=== PATIENT | male | born 2000 | race Caucasian/White ===

== ENCOUNTER 2020-06-04 20:50 | Emergency (ER) | payer SELFPAY ==
[2020-06-04] MEDS ORDERED: ACETAMINOPHEN 325 MG TABLET PO ONE (21:31)
[2020-06-04] MEDS ORDERED: CEFTRIAXONE 1 GM/D5W RTU 1 GM/50 ML RTUPB IV ONE (21:33)
--- NOTE | 2020-06-04 21:40 | ER Document Report ---
ED Medical Screen (RME) - General Chief Complaint: Chest Pain Stated Complaint: CHEST PAIN, COUGH Time Seen by Provider: 06/04/20 21:29 Mode of Arrival: Ambulatory Information source: Patient Notes: 19-year-old male presented to ED for complaint of shortness of breath and chest pain with fevers intermittently runny nose and congestion. When I did his vital signs his temperature was 103.1 with a pulse of 148. He had a EKG earlier with a pulse of 120. I did speak with the charge nurse and placed the patient in a isolation room. I did put in a sepsis work-up and a Covid test. Patient will be started on Tylenol antibiotics and the sepsis work-up will be started. I have greeted and performed a rapid initial assessment of this patient. A comprehensive ED assessment and evaluation of the patient, analysis of test results and completion of medical decision making process will be conducted by an additional ED providers.
[2020-06-04] MEDS: NORMAL SALINE 1000 ML 1,000 ML IV PRN ×2 (22:08→22:48)
[2020-06-04 22:29] LABS: HEMATOCRIT 38.8 % (37.9-51.0); HEMOGLOBIN 13.3 g/dL (13.5-17.0); MEAN CORPUSCULAR HEMOGLOBIN 27.8 pg (27.0-33.4); MEAN CORPUSCULAR HGB CONC 34.2 g/dL (32.0-36.0); MEAN CORPUSCULAR VOLUME 81 fl (80-97); PLATELET COUNT 215 10^3/uL (150-450); RED BLOOD COUNT 4.77 10^6/uL (4.35-5.55); RED CELL DISTRIBUTION WIDTH 14.5 % (11.5-14.0); VENOUS BLOOD BASE EXCESS -1.2 mmol/L; VENOUS BLOOD HCO3 22.6 mmol/L (20-32); VENOUS BLOOD PCO2 36.2 mmHg (35-63); VENOUS BLOOD PH 7.41 (7.30-7.42); WHITE BLOOD COUNT 5.8 10^3/uL (4.0-10.5)
[2020-06-04 22:40] LABS: PROTHROMBIN TIME 14.4 SEC (11.4-15.4)
[2020-06-04 22:45] LABS: ALBUMIN 4.6 g/dL (3.5-5.0); ALKALINE PHOSPHATASE 98 U/L (38-126); ANION GAP 13 (5-19); ASPARTATE AMINO TRANSFERASE 31 U/L (17-59); BILIRUBIN,DIRECT 0.2 mg/dL (0.0-0.4); BLOOD UREA NITROGEN 17 mg/dL (7-20); CALCIUM 9.3 mg/dL (8.4-10.2); CARBON DIOXIDE 25 mmol/L (22-30); CHLORIDE 96 mmol/L (98-107); GLUCOSE 101 mg/dL (75-110); POTASSIUM 4.3 mmol/L (3.6-5.0); TOTAL PROTEIN 8.2 g/dL (6.3-8.2)
--- NOTE | 2020-06-04 22:46 | RADIOLOGY REPORT (SQ) ---
EXAM DESCRIPTION: XR CHEST 1 VIEW COMPLETED DATE/TME: 06/04/2020 22:09 CLINICAL HISTORY: 19 years, Male, Cough congestion chest pain temp of 103.1 PROCEDURE: XR CHEST 1 VIEW COMPARISON: None FINDINGS: Portable view of the chest was obtained at 9:52 PM. The heart size is normal and the lungs are clear. There is no definite pleural effusion or pneumothorax. IMPRESSION: Negative study as above. copyright 2010 [employer]- All Rights Reserved
[2020-06-04 22:59] LABS: ABSOLUTE MONOCYTES # (MANUAL) 0.9 10^3/uL (0.1-1.4); BASOPHILS % (MANUAL) 0 % (0-2); EOSINOPHILS % (MANUAL) 0 % (0-6); LYMPHOCYTES % (MANUAL) 15 % (13-45); MONOCYTES % (MANUAL) 16 % (3-13); SEGMENTED NEUTROPHILS % (MAN) 67 % (42-78); TOTAL CELLS COUNTED 100
[2020-06-04 23:00] LABS: ANISOCYTOSIS SLIGHT; PLATELET COMMENT ADEQUATE
[2020-06-04 23:01] LABS: POLYCHROMASIA SLIGHT
[2020-06-04 23:03] LABS: POIKILOCYTOSIS SLIGHT
--- NOTE | 2020-06-04 23:42 | ER Document Report ---
ED General - General Chief Complaint: Fever Stated Complaint: CHEST PAIN, COUGH Time Seen by Provider: 06/04/20 21:29 Mode of Arrival: Ambulatory - HPI Context: This is a 19-year-old male presenting to the emergency department complaining of dyspnea, pleuritic chest pain and intermittent fevers along with rhinorrhea and upper respiratory congestion x3 weeks. Patient initial vital signs in triage were significant for a temp of 103.1 and a pulse of 148. Patient denies prior history of COVID-19, known exposure to persons positive for or under investigation for COVID-19. Patient states symptoms are worse with exertion. Patient also complains of left-sided chest pain along his left costal margin w hich is worse with cough deep breath and movement. Patient denies alleviating factors. Patient denies receiving flu vaccine this season. Patient is also complaining of a runny nose and nasal congestion. Patient denies cigarette smoking and marijuana use. Patient does have a history of asthma but denies wheezing. Patient denies loss of sense of taste or loss of sense of smell. Associated symptoms: Other - See HPI Exacerbated by: Other - See HPI Relieved by: Other - See HPI - Related Data Allergies/Adverse Reactions: Penicillins Allergy (Verified 06/04/20 22:03) Past Medical History - General Information source: Patient - Social History Smoking Status: Never Smoker Frequency of alcohol use: None Drug Abuse: None Family History: Reviewed & Not Pertinent Patient has suicidal ideation: No Patient has homicidal ideation: No Pulmonary Medical History: Reports: Hx Asthma - as a child, Hx Bronchitis, Hx Pneumonia Review of Systems - Review of Systems Constitutional: See HPI EENT: No symptoms reported Cardiovascular: No symptoms reported Respiratory: Cough, Hurts to breathe, Short of breath Gastrointestinal: No symptoms reported Genitourinary: No symptoms reported Male Genitourinary: No symptoms reported Musculoskeletal: No symptoms reported Skin: No symptoms reported Hematologic/Lymphatic: No symptoms reported Neurological/Psychological: No symptoms reported -: Yes All other systems reviewed and negative Physical Exam - Vital signs Vitals: Resp Pulse Ox 27 H 99 06/04/20 21:36 06/04/20 21:36 - Notes Notes: CONSTITUTIONAL [Vital signs reviewed, Patient appears comfortable, Alert and oriented X 3, Normal stature.] HEAD [Atraumatic, Normocephalic.] EYES [Eyes are normal to inspection, No discharge from eyes, Extraocular muscles in tact, Sclera are normal, Conjunctiva are normal.] ENT [External ears normal to inspection, Nose examination normal, Mouth normal to inspection.] NECK [Normal ROM, No jugular venous distention, No meningeal signs, ] RESPIRATORY CHEST [Chest is nontender, Breath sounds normal, No respiratory distress. No wheezing or rhonchi noted] CARDIOVASCULAR [RRR, No murmurs, Normal S1 S2, No rub, No gallop.] ABDOMEN [Abdomen is nontender, No pulsatile masses, No other masses, Bowel sounds normal, No distension, No peritoneal signs, No hernias.] BACK [There is no CVA Tenderness, There is no tenderness to palpation, Normal inspection.] UPPER EXTREMITY [Inspection normal, No cyanosis, No clubbing, No edema, LOWER EXTREMITY [Inspection normal, No cyanosis, No clubbing, No edema, No calf tenderness, NEURO [No focal motor deficits, No focal sensory deficits, Speech normal.] SKIN [Skin is warm, Skin is dry, Skin is normal color.] PSYCHIATRIC [Normal affect. ] Course - Re-evaluation Re-evalutation: 06/05/20 01:42 Patient states he "feels fine" at this time. Results of ED MSE discussed with patient. Patient was given COVID-19 precautions and will be given a work note. The patient's flu swabs were negative however he could possibly have a nontypeable type of influenza. There was no evidence of pneumonia on his chest x-ray. The patient is not having any wheezing. I think that his symptoms could be due to a viral respiratory infection, COVID-19. I do not think this is any type of asthma exacerbation that needs prednisone therapy. All questions were answered prior to discharge. Emergency signs and symptoms, reasons to return to the emergency department discussed with patient. - Vital Signs Vital signs: Temp Pulse Resp BP Pulse Ox 99.6 F 18 126/72 H 97 06/04/20 22:47 06/05/20 01:01 06/05/20 01:01 06/05/20 01:01 - Laboratory Result Diagrams: 06/04/20 21:46 06/04/20 21:46 Laboratory results interpreted by me: 06/04/20 06/04/20 06/05/20 21:46 21:46 00:08 Hgb 13.3 L RDW 14.5 H Monocytes % (Manual) 16 H Sodium 134.4 L Chloride 96 L Urine Ketones TRACE H Urine Urobilinogen 4.0 H - Diagnostic Test Radiology reviewed: Reports reviewed - EKG Interpretation by Me Additional EKG results interpreted by me: 06/05/20 01:41 EKG obtained on 06/04/2020 at 2102 hrs. was interpreted by this MD. Findings: Sinus tachycardia, rate 120, normal axis, AK interval appears to be within normal limits, P waves proceed QRS complexes, QRS complex appears narrow, QTC is 402, there are no obvious patterns of ST segment elevation, depression or reciprocal changes seen to suggest acute myocardial ischemia or infarction. Impression: Sinus tachycardia with nonspecific ST segments. Discharge - Discharge Clinical Impression: Person under investigation for COVID-19 Dyspnea Qualifiers: Dyspnea type: unspecified Qualified Code(s): R06.00 - Dyspnea, unspecified Fever Qualifiers: Fever type: unspecified Qualified Code(s): R50.9 - Fever, unspecified Condition: Stable Disposition: HOME, SELF-CARE Instructions: COVID-19 Guidance for Persons Under Investigation, Fever ([facility]) Additional Instructions: Return to the Emergency Department without delay if any worse. HOME CARE INSTRUCTIONS & INFORMATION: Thank you for choosing us for your medical needs. We hope you're satisfied with the care you received. After you leave, you must properly care for your problem and, at the same time, observe its progress. Any condition can change. Some illnesses can change rapidly over hours or days. If your condition worsens, return to the Emergency Department or see your physician promptly. ABOUT YOUR X-RAYS AND EKG'S: If you had an EKG or X-rays taken, they have been read by the Emergency Physician. The X-rays and EKG's will also be read by a Radiologist or [employer] Tender within 24 hours. If discrepancies are noted, you will be notified by telephone. Please be certain the ED has a correct telephone number & address where you can be reached. Also, realize that some fractures or abnormalities do not show up on initial X-rays. If your symptoms continue, see your physician. ABOUT YOUR LABORATORY TEST: If you had laboratory tests, the results have been reviewed by the Emergency Physician. Some test results (for example cultures) may not be available for several days. You will be contacted if any test result shows you need additional treatment. Please be certain the ED has a correct telephone number and address where you can be reached. ABOUT YOUR MEDICATIONS: You will receive instructions on how to take your medi cine on the prescription label you receive. Additional information may be provided by the Pharmacy. If you have questions afterwards, call the ED for clarification or further instructions. Some prescribed medications may cause drowsiness. Do not perform tasks such as driving a car or operating machinery without consulting your Pharmacist. If you feel you need a refill of pain medication, your condition will need re-evaluation. Please do not call for a refill of any medication. ABOUT YOUR SIGNATURE: Signature of this document acknowledges to followin. Understanding that you received emergency treatment and that you may be released before al medical problems are known or treated. Please be certain the ED has a correct phone number & address where you can be reached. 2. Acknowledgement that you will arrange for follow-up care as recommended. 3. Authorization for the Emergency Physician to provide information to your follow-up Physician in order to maximize your care. AT ANY TIME, IF YOUR SYMPTOMS CHANGE SIGNIFICANTLY OR WORSEN OR YOU DEVELOP NEW SYMPTOMS, RETURN TO THE EMERGENCY DEPARTMENT IMMEDIATELY FOR RE-EVALUATION. OUR GOAL IS TO PROVIDE EXCELLENT MEDICAL CARE! WE HOPE THAT WE HAVE MET YOUR EXPECTATIONS DURING YOUR EMERGENCY DEPARTMENT VISIT AND THAT YOU FEEL YOU HAVE RECEIVED EXCELLENT CARE! Prescriptions: Ibuprofen [Motrin 600 Mg Tablet] 600 mg PO QID #20 tablet Forms: Return to Work Referrals: LEXIE AMBROSE MD [HONORARY] - Follow up as needed
[2020-06-05 00:30] LABS: APPEARANCE,URINE CLEAR; BILIRUBIN,URINE NEGATIVE (NEGATIVE); COLOR,URINE YELLOW; GLUCOSE, URINE NEGATIVE (NEGATIVE); KETONES,URINE TRACE mg/dL (NEGATIVE); LEUKOCYTE ESTERASE,URINE NEGATIVE (NEGATIVE); NITRITE,URINE NEGATIVE (NEGATIVE); PROTEIN,URINE NEGATIVE (NEGATIVE); URINE SPECIFIC GRAVITY 1.013
[2020-06-05 00:37] LABS: A TYPE INFLUENZA AG NEGATIVE (NEGATIVE); B INFLUENZA AG NEGATIVE (NEGATIVE)
[2020-06-05] MEDS ORDERED: IBUPROFEN 600 MG TABLET PO ONE (01:46)
[2020-06-05 02:33] VITALS: BP 125/80
--- NOTE | 2020-06-05 09:51 | EKG REPORT ---
SEVERITY:- OTHERWISE NORMAL ECG - SINUS TACHYCARDIA : Confirmed by: Gabby Marino 05-Jun-2020 09:50:43
== END 2020-06-05 02:36 | disposition home or self-care (01) ==
LOC: ER 20:50
DX: R50.9 Fever, unspecified (principal); R07.81 Pleurodynia; R07.1 Chest pain on breathing; R06.02 Shortness of breath; J34.89 Other specified disorders of nose and nasal sinuses; R09.89 Other specified symptoms and signs involving the circulatory and respiratory systems; R09.81 Nasal congestion; R05 Cough; R00.0 Tachycardia, unspecified; Z87.01 Personal history of pneumonia (recurrent); Z88.0 Allergy status to penicillin; Z20.828 Contact with and (suspected) exposure to other viral communicable diseases
CPT/HCPCS: 93005; 99285; 96361; 96365; 36415; 87040; 87086; 83605; 85025; 85610; 87635; 80053; 81001; 82803; 87804; 71045; 93010; J7030; J0696; C9803

== ENCOUNTER 2020-06-18 18:36 | Emergency (ER) | payer SELFPAY ==
[2020-06-18] MEDS ORDERED: KETOROLAC TROMETHAMINE 60 MG/2 ML SDV IM ONE (18:51)
--- NOTE | 2020-06-18 18:55 | ER Document Report ---
ED Medical Screen (RME) - General Chief Complaint: Fever Stated Complaint: COUGH,CONGESTION,LEFT RIB PAIN Time Seen by Provider: 06/18/20 18:48 Mode of Arrival: Ambulatory Information source: Patient Notes: 19-year-old male presented to ED for complaint of cough cold congestion left rib pain felt like something popped and went to crack today. He does have a temperature of 103 with a pulse of 136. He states he was seen here for similar feeling about 2 weeks ago and they did not find anything they did blood and urine and all kinds of stuff and did not find anything. He states he has not really gotten any better since that. He is alert oriented respirations regular and unlabored speaking in full sentences. I have spoken to the charge nurse who told me to put him in room 36. I have started a septic work-up on him. I have greeted and performed a rapid initial assessment of this patient. A comprehensive ED assessment and evaluation of the patient, analysis of test results and completion of medical decision making process will be conducted by an additional ED providers. - Related Data Allergies/Adverse Reactions: Penicillins Allergy (Verified 06/18/20 18:47) Home Medications: ibuprofen Past Medical History - Social History Chew tobacco use (# tins/day): No Frequency of alcohol use: Rare Drug Abuse: None Pulmonary Medical History: Reports: Hx Asthma - as a child, Hx Bronchitis, Hx Pneumonia Physical Exam - Vital signs Vitals: Temp Pulse Resp BP Pulse Ox 103.0 F H 136 H 20 134/77 H 100 06/18/20 18:45 06/18/20 18:45 06/18/20 18:45 06/18/20 18:45 06/18/20 18:45 Course - Vital Signs Vital signs: Temp Pulse Resp BP Pulse Ox 103.0 F H 136 H 20 134/77 H 100 06/18/20 18:48 06/18/20 18:45 06/18/20 18:45 06/18/20 18:45 06/18/20 18:45
[2020-06-18] MEDS ORDERED: KETOROLAC TROMETHAMINE INJ/PF 30 MG/1 ML SDV IV ONE (18:57)
[2020-06-18] MEDS: NORMAL SALINE 1000 ML 1,000 ML IV PRN ×2 (19:30→20:24)
--- NOTE | 2020-06-18 19:33 | RADIOLOGY REPORT (SQ) ---
EXAM DESCRIPTION: RIBS LEFT W/PA CHEST IMAGES COMPLETED DATE/TIME: 06/18/2020 7:21 pm REASON FOR STUDY: left rib pain COMPARISON: Chest radiograph 06/04/2020 TECHNIQUE: Frontal view of the chest and additional views of the left ribs acquired. NUMBER OF VIEWS: Three view. LIMITATIONS: None. FINDINGS: FRONTAL CXR: No pneumothorax. There is concern for peritracheal hilar and AP window adeno selma. RIBS: Nondisplaced fractures of the 7th and 8th lateral left ribs. OTHER: No other significant finding. IMPRESSION: Nondisplaced 7th and 8th lateral rib fractures. Concern for adenopathy in the hilar mediastinum regions. COMMENT: Consider chest CT. SITE OF TRAUMA/COMPLAINT MARKED/STAMP COMPLETED: Yes TECHNICAL DOCUMENTATION: JOB ID: [id number] 2010 [employer]- All Rights Reserved Reading location - IP/workstation name: [email or web address]
[2020-06-18 20:22] LABS: HEMATOCRIT 36.3 % (37.9-51.0); HEMOGLOBIN 12.1 g/dL (13.5-17.0); MEAN CORPUSCULAR HEMOGLOBIN 26.5 pg (27.0-33.4); MEAN CORPUSCULAR HGB CONC 33.3 g/dL (32.0-36.0); MEAN CORPUSCULAR VOLUME 79 fl (80-97); PLATELET COUNT 200 10^3/uL (150-450); RED BLOOD COUNT 4.57 10^6/uL (4.35-5.55); WHITE BLOOD COUNT 3.9 10^3/uL (4.0-10.5)
[2020-06-18 20:23] LABS: VENOUS BLOOD BASE EXCESS 1.6 mmol/L; VENOUS BLOOD HCO3 25.7 mmol/L (20-32); VENOUS BLOOD PCO2 38.9 mmHg (35-63); VENOUS BLOOD PH 7.44 (7.30-7.42)
[2020-06-18 20:24] LABS: INTERNATIONAL RATION (INR) 1.13; PROTHROMBIN TIME 14.7 SEC (11.4-15.4)
[2020-06-18 20:35] LABS: ALBUMIN 4.1 g/dL (3.5-5.0); ALKALINE PHOSPHATASE 78 U/L (38-126); ANION GAP 6 (5-19); ASPARTATE AMINO TRANSFERASE 45 U/L (17-59); BILIRUBIN,DIRECT 0.2 mg/dL (0.0-0.4); BILIRUBIN,TOTAL 0.8 mg/dL (0.2-1.3); BLOOD UREA NITROGEN 11 mg/dL (7-20); CALCIUM 9.2 mg/dL (8.4-10.2); CARBON DIOXIDE 29 mmol/L (22-30); CHLORIDE 98 mmol/L (98-107); GLUCOSE 102 mg/dL (75-110); POTASSIUM 4.8 mmol/L (3.6-5.0); TOTAL PROTEIN 7.4 g/dL (6.3-8.2)
[2020-06-18 20:37] LABS: A TYPE INFLUENZA AG NEGATIVE (NEGATIVE); B INFLUENZA AG NEGATIVE (NEGATIVE)
[2020-06-18 20:48] LABS: ABSOLUTE LYMPHOCYTES# (MANUAL) 0.6 10^3/uL (0.5-4.7); ABSOLUTE MONOCYTES # (MANUAL) 0.6 10^3/uL (0.1-1.4); BAND NEUTROPHILS % (MANUAL) 3 % (3-5); BASOPHILS % (MANUAL) 0 % (0-2); EOSINOPHILS % (MANUAL) 1 % (0-6); LYMPHOCYTES % (MANUAL) 13 % (13-45); METAMYELOCYTES % (MANUAL) 2 % (0-1); MONOCYTES % (MANUAL) 15 % (3-13); SEGMENTED NEUTROPHILS % (MAN) 64 % (42-78); TOTAL CELLS COUNTED 100
[2020-06-18 20:49] LABS: ANISOCYTOSIS SLIGHT; PLATELET COMMENT ADEQUATE; POLYCHROMASIA SLIGHT
[2020-06-18] MEDS ORDERED: CEFTRIAXONE 1 GM/D5W RTU 1 GM/50 ML RTUPB IV ONE (21:58)
[2020-06-18] MEDS ORDERED: AZITHROMYCIN INJ 500 MG VIAL IV ONE (21:59)
--- NOTE | 2020-06-18 22:02 | ER Document Report ---
ED General - General Chief Complaint: Fever Stated Complaint: COUGH,CONGESTION,LEFT RIB PAIN Time Seen by Provider: 06/18/20 18:48 Primary Care Provider: LEXIE AMBROSE MD [HONORARY] - Follow up as needed Mode of Arrival: Ambulatory - HPI Context: This is a 19-year-old male presenting to the emergency department complaining of shortness of breath, pleuritic chest pain and fever as well as cough. Patient states he has had the symptoms for approximately 1 month. Patient states that he came to this ED approximately 2 weeks ago to get evaluated for the same symptoms. No etiology of his symptoms were found. Patient had a COVID-19 test done that was resulted as negative. Patient states in the interim he is still had issues with cough, fever, pleuritic chest pain. Patient states he is had several episodes of extreme coughing fits, and twice he is felt a crack or a pop on his left side associated with the coughing. Patient denies any type of chest trauma, prior rib fracture, accidental fall. Patient states that cough and deep breath as well as exertion exacerbate his symptoms. Patient denies any alleviating symptoms. Patient states when he coughed again today and felt another pop he spoke to his mother who is a nurse, she instructed him to come to the emergency department for evaluation. Patient has not had a flu vaccine this season. Patient denies to smoking. Patient states he had a history of asthma and bronchitis as a child which he states he outgrew. Patient denies headache, visual changes, loss of sense of smell or loss of sense of taste, h istory of COVID-19 infection, known exposure to persons positive for COVID-19 or persons under investigation for COVID-19. Patient denies any alleviating factors at this point. Patient states he does have pain in his left rib cage that he describes as sharp pain as a 4 out of 5. Pain is exacerbated with deep breath and with cough and there are no alleviating factors. Patient has tried [id number] medications without relief of symptoms. Associated symptoms: Other - See HPI Exacerbated by: Other - See HPI Similar symptoms previously: Yes Recently seen / treated by doctor: Yes - Related Data Allergies/Adverse Reactions: Penicillins Allergy (Verified 06/18/20 18:47) Home Medications: ibuprofen Past Medical History - General Information source: Patient - Social History Smoking Status: Never Smoker Chew tobacco use (# tins/day): No Frequency of alcohol use: Rare Drug Abuse: None Family History: Reviewed & Not Pertinent Patient has homicidal ideation: No Pulmonary Medical History: Reports: Hx Asthma - as a child, Hx Bronchitis, Hx Pneumonia Review of Systems - Review of Systems Notes: Review of systems as below unless otherwise stated in HPI. CONSTITUTIONAL [+] fever, [No] chills. EYES [No] eye pain. ENT [No] URI symptoms, [No] sore throat, [No] ear pain. CARDIOVASCULAR [+] chest wall pain, [No] palpitations, [No] edema. RESPIRATORY [+] Cough, [No] SOB, [No] wheezing. GASTROINTESTINAL [No] abdominal pain, [No] nausea, [No] Diarrhea, [No] Vomiting, [No] constipation, [No] melena, [No] rectal bleeding. GENITOURINARY [No] dysuria, [No] urinary frequency, [No] hematuria, [No] urinary urgency MUSCULOSKELETAL [No] Back pain. SKIN [No] Rash. NEUROLOGIC [No] Headache, [No] recent seizures, [No] paralysis,[No] parathesias. ENDOCRINE [No] polyuria. HEMO/LYMPATIC [No] easy brusing PSYCHIATRIC [No] depression. Physical Exam - Vital signs Vitals: Temp Pulse Resp BP Pulse Ox 103.0 F H 136 H 20 134/77 H 100 06/18/20 18:45 06/18/20 18:45 06/18/20 18:45 06/18/20 18:45 06/18/20 18:45 - Notes Notes: CONSTITUTIONAL [Vital signs reviewed, Patient appears mildly uncomfortable, Alert and oriented X 3, Normal stature.] HEAD [Atraumatic, Normocephalic.] EYES [Eyes are normal to inspection, No discharge from eyes, Extraocular muscles intact, Sclera are normal, Conjunctiva are normal.] ENT [External ears normal to inspection, Nose examination normal, Mouth normal to inspection.] NECK [Normal ROM, No jugular venous distention, No meningeal signs, ] RESPIRATORY CHEST [left lateral chest is tender to palpation over left seventh and eighth ribs posterior to the mid axillary line but there is no crepitus, emphysema or step-off, Breath sounds normal, No respiratory distress.] CARDIOVASCULAR [Tachycardia, No murmurs, Normal S1 S2, No rub, No gallop.] ABDOMEN [Abdomen is nontender, No pulsatile masses, No other masses, Bowel sounds normal, No distension, No peritoneal signs, No hernias.] BACK [There is no CVA Tenderness, There is no tenderness to palpation, Normal inspection.] UPPER EXTREMITY [Inspection normal, No cyanosis, No clubbing, No edema, LOWER EXTREMITY [Inspection normal, No cyanosis, No clubbing, No edema, No calf tenderness, NEURO [No focal motor deficits, No focal sensory deficits, Speech normal.] SKIN [Skin is warm, Skin is dry, Skin is normal color.] PSYCHIATRIC [Normal affect. ] Course - Re-evaluation Re-evalutation: 06/18/20 22:18 Results of ED MSE discussed with patient. When asked if all questions were answered and all concerns during this visit were addressed, patient answered in the affirmative. Emergency signs and symptoms, reasons to return to the emergency department discussed with patient. Patient was instructed to return to the emergency department at any time if he is feeling significantly worse despite taking medications as prescribed, otherwise patient should return in 2 days for reevaluation since he does not have a primary care physician that he can directly get a follow-up appointment with. Differential diagnosis/medical decision making: While it is unusual to have rib fractures in a young, otherwise healthy male, given the length of the patient's respiratory symptoms and patient stating himself that he noted a sensation of a snap or pop twice during one of his coughing fits, rib fractures or not entirely out of the realm of possibility, as seen on the patient's rib films. I think t he patient is developing a pneumonia even though it is not seen on the chest x- ray yet. I do not think this is necessarily a Covid pneumonia but a repeat swab has been ordered and sent. The patient will be given a work note to be out for the next several days until he hears from the health department whether or not he is positive for COVID-19 or not. Patient's flu swab is negative. I think at this point the most fitting diagnosis would be infectious bronchitis with etiology of the organism being unknown. Plan will be to give the patient a dose of IV Rocephin and Zithromax, IV fluids, incentive spirometer with instructions, NSAIDs and narcotic medication for pain control and to ensure the patient is adequately oxygenating and ventilating. - Vital Signs Vital signs: Temp Pulse Resp BP Pulse Ox 103.0 F H 136 H 20 134/77 H 100 06/18/20 18:48 06/18/20 18:45 06/18/20 18:45 06/18/20 18:45 06/18/20 18:45 - Laboratory Result Diagrams: 06/18/20 19:44 06/18/20 19:44 Laboratory results interpreted by me: 06/18/20 06/18/20 06/18/20 19:44 19:44 19:44 WBC 3.9 L Hgb 12.1 L Hct 36.3 L MCV 79 L MCH 26.5 L RDW 15.0 H Monocytes % (Manual) 15 H Metamyelocytes % 2 H VBG pH 7.44 H Sodium 133.2 L - Diagnostic Test Radiology reviewed: Reports reviewed Discharge - Discharge Clinical Impression: Acute bronchitis due to infection, Person under investigation for COVID-19 Ribs, multiple fractures Qualifiers: Encounter type: initial encounter Fracture type: closed Laterality: left Qu alified Code(s): S22.42XA - Multiple fractures of ribs, left side, initial encounter for closed fracture Condition: Stable Disposition: HOME, SELF-CARE Instructions: COVID-19 Guidance for Persons Under Investigation Additional Instructions: Return to the emergency department in 2 days for reevaluation. Return sooner if your symptoms worsen despite taking medications as prescribed. Be certain to use the incentive spirometer as instructed. Use Tussionex at bedtime because it is time released and should help with pain control and cough which should help you sleep. During the day for pain that is not relieved with ibuprofen, you may also take Lyman tablets as directed. You have been diagnosed with an acute infectious bronchitis. There is no evidence of a pneumonia on your chest x-ray at this time but I believe that the potential for a pneumonia exists which is why you are being put on additional antibiotics and are instructed to return to the emergency department in 2 days for a reevaluation and follow-up chest x-ray. You are also being diagnosed with rib fractures. These can occur when you have repeated severe episodes of cough and you are being given an incentive spirometer to help keep your lungs well ventilated despite the pain you may be experiencing from the rib fractures. You are also being put on 2 types of pain medication to help with the fracture pain. The rib fracture should heal by themselves with time over the next several weeks.Rib Injuries and Fractures You have been diagnosed as having either bruised or broken ribs. These two injuries are treated in the same way. It will usually take four to six weeks for these injured ribs to heal. Sometimes, rib belts or anesthetic injections of the chest wall help reduce the pain. If you are using a rib belt, you should cough or take a deep breath at least every hour or two to prevent lung complications. You should not engage in any strenuous physical activity until released by your physician. The usual rule is "if it hurts, don't do it." Rib fractures can lead to serious lung complications including lung collapse, hemorrhage, and pneumonia. You should call the physician or return at once if any of the following occur: (1) Fever or chills. (2) Persistent cough, coughing up blood, or shortness of breath. (3) Increasing pain. (4) Weakness, lightheadedness, or fainting. HOME CARE INSTRUCTIONS & INFORMATION: Thank you for choosing us for your medical needs. We hope you're satisfied with the care you received. After you leave, you must properly care for your problem and, at the same time, observe its progress. Any condition can change. Some illnesses can change rapidly over hours or days. If your condition worsens, return to the Emergency Department or see your physician promptly. ABOUT YOUR X-RAYS AND EKG'S: If you had an EKG or X-rays taken, they have been read by the Emergency Physician. The X-rays and EKG's will also be read by a Radiologist or [employer] within 24 hours. If discrepancies are noted, you will be notified by telephone. Please be certain the ED has a correct telephone number & address where you can be reached. Also, realize that some fractures or abnormalities do not show up on initial X-rays. If your symptoms continue, see your physician. ABOUT YOUR LABORATORY TEST: If you had laboratory tests, the results have been reviewed by the Emergency Physician. Some test results (for example cultures) may not be available for several days. You will be contacted if any test result shows you need additional treatment. Please be certain the ED has a correct telephone number and address where you can be reached. ABOUT YOUR MEDICATIONS: You will receive instructions on how to take your medicine on the prescription label you receive. Additional information may be provided by the Pharmacy. If you have questions afterwards, call the ED for clarification or further instructions. Some prescribed medications may cause drowsiness. Do not perform tasks such as driving a car or operating machinery without consulting your Pharmacist. If you feel you need a refill of pain medication, your condition will need re-evaluation. Please do not call for a refill of any medication. ABOUT YOUR SIGNATURE: Signature of this document acknowledges to followin. Understanding that you received emergency treatment and that you may be released before al medical problems are known or treated. Please be certain the ED has a correct phone number & address where you can be reached. 2. Acknowledgement that you will arrange for follow-up care as recommended. 3. Authorization for the Emergency Physician to provide information to your follow-up Physician in order to maximize your care. AT ANY TIME, IF YOUR SYMPTOMS CHANGE SIGNIFICANTLY OR WORSEN OR YOU DEVELOP NEW SYMPTOMS, RETURN TO THE EMERGENCY DEPARTMENT IMMEDIATELY FOR RE-EVALUATION. OUR GOAL IS TO PROVIDE EXCELLENT MEDICAL CARE! WE HOPE THAT WE HAVE MET YOUR EXPECTATIONS DURING YOUR EMERGENCY DEPARTMENT VISI T AND THAT YOU FEEL YOU HAVE RECEIVED EXCELLENT CARE! Bronchitis You have acute bronchitis. This disease is an infection or inflammation of the air passageways in your lungs. Symptoms usually include cough, low grade fever, shortness of breath, and wheezing. The cough usually persists for a couple of weeks. Most cases of bronchitis get better without antibiotics. We prescribe antibiotics when we believe bacteria are damaging your airways, or if there's high risk the bronchitis will worsen into pneumonia. Increase your fluid intake. A cool mist humidifier may make your lungs more comfortable. An expectorant (cough medicine that loosens phlegm) can help. If you smoke, STOP!!! Recovery from bronchitis can be somewhat slow, but you sh ould see improvement within a day or two. Repeated episodes of bronchitis may result in lung damage -- for example, chronic bronchitis, recurrent pneumonias, or emphysema. Call the doctor if you develop increasing fever, shortness of breath, chest pain, bloody sputum, or otherwise worsen. If you have not improved at all after several days, contact the physician. Prescriptions: Hydrocodone/Acetaminophen [Lyman 5-325 mg Tablet] 1 tab PO Q6HP PRN #12 tablet PRN Reason: severe pain Ibuprofen [Motrin 800 mg Tablet] 800 mg PO Q8H #30 tab Azithromycin [Zithromax] 250 mg PO DAILY 4 Days #4 tablet Forms: Return to Work Referrals: LEXIE AMBROSE MD [HONORARY] - Follow up as needed
[2020-06-18] MEDS ORDERED: HYDROCODONE/ACETAMINOPHEN 5-325 MG TABLET PO ONE (22:16)
[2020-06-18] MEDS ORDERED: HYDROCODONE/ACETAMINOPHEN 5-325 MG (6 TAB/ER DISP) PO PRN (22:47)
[2020-06-19 00:22] VITALS: BP 105/69
--- NOTE | 2020-06-19 12:00 | EKG REPORT ---
SEVERITY:- OTHERWISE NORMAL ECG - SINUS TACHYCARDIA : Confirmed by: Khoi Dunn MD 19-Jun-2020 11:59:43
== END 2020-06-19 00:28 | disposition home or self-care (01) ==
LOC: ER 18:36
DX: J20.9 Acute bronchitis, unspecified (principal); B99.9 Unspecified infectious disease; S22.42XA Multiple fractures of ribs, left side, initial encounter for closed fracture; X58.XXXA Exposure to other specified factors, initial encounter; R06.02 Shortness of breath; R05 Cough; R50.9 Fever, unspecified; R07.81 Pleurodynia; Z87.01 Personal history of pneumonia (recurrent); Z20.828 Contact with and (suspected) exposure to other viral communicable diseases
CPT/HCPCS: 93005; 99285; 96361; 96375; 96365; 36415; 87040; 87070; 87880; 83605; 85025; 85610; 87635; 80053; 82803; 87804; 71101; 93010; J1885; J7030; J0456; J0696; C9803

== ENCOUNTER 2020-07-05 09:34 | Inpatient (IN) | payer SELFPAY ==
[2020-07-05] MEDS: NORMAL SALINE 1000 ML 1,000 ML IV PRN ×2 (10:40→11:21)
[2020-07-05] MEDS ORDERED: KETOROLAC TROMETHAMINE INJ/PF 30 MG/1 ML SDV IV ONE (10:49)
[2020-07-05] MEDS ORDERED: ACETAMINOPHEN 1,000 MG/100 ML RTUPB IV ONE (10:49)
[2020-07-05 11:10] LABS: APPEARANCE,URINE SLIGHTLY-CLOUDY; BILIRUBIN,URINE NEGATIVE (NEGATIVE); GLUCOSE, URINE NEGATIVE (NEGATIVE); KETONES,URINE NEGATIVE (NEGATIVE); LEUKOCYTE ESTERASE,URINE NEGATIVE (NEGATIVE); NITRITE,URINE NEGATIVE (NEGATIVE); PROTEIN,URINE 100 mg/dL (NEGATIVE); URINE SPECIFIC GRAVITY 1.023
[2020-07-05 11:12] LABS: COLOR,URINE DARK YELLOW
[2020-07-05 11:14] LABS: HEMOGLOBIN 10.9 g/dL (13.5-17.0); MEAN CORPUSCULAR HEMOGLOBIN 26.2 pg (27.0-33.4); MEAN CORPUSCULAR HGB CONC 34.1 g/dL (32.0-36.0); MEAN CORPUSCULAR VOLUME 77 fl (80-97); RED BLOOD COUNT 4.17 10^6/uL (4.35-5.55); RED CELL DISTRIBUTION WIDTH 15.5 % (11.5-14.0); WHITE BLOOD COUNT 4.1 10^3/uL (4.0-10.5)
[2020-07-05 11:16] LABS: INTERNATIONAL RATION (INR) 1.31; PROTHROMBIN TIME 16.5 SEC (11.4-15.4)
[2020-07-05 11:18] LABS: D-DIMER 3.61 ug/mL (0.00-0.50)
[2020-07-05 11:29] LABS: ALBUMIN 3.6 g/dL (3.5-5.0); ALKALINE PHOSPHATASE 93 U/L (38-126); ANION GAP 11 (5-19); ASPARTATE AMINO TRANSFERASE 44 U/L (17-59); BILIRUBIN,DIRECT 0.4 mg/dL (0.0-0.4); BLOOD UREA NITROGEN 16 mg/dL (7-20); CALCIUM 8.3 mg/dL (8.4-10.2); CARBON DIOXIDE 24 mmol/L (22-30); CHLORIDE 94 mmol/L (98-107); GLUCOSE 127 mg/dL (75-110); TOTAL PROTEIN 6.7 g/dL (6.3-8.2)
[2020-07-05 11:36] LABS: ABSOLUTE LYMPHOCYTES# (MANUAL) 0.4 10^3/uL (0.5-4.7); ABSOLUTE MONOCYTES # (MANUAL) 0.3 10^3/uL (0.1-1.4); BAND NEUTROPHILS % (MANUAL) 5 % (3-5); BASOPHILS % (MANUAL) 0 % (0-2); EOSINOPHILS % (MANUAL) 0 % (0-6); LYMPHOCYTES % (MANUAL) 6 % (13-45); MONOCYTES % (MANUAL) 8 % (3-13); SEGMENTED NEUTROPHILS % (MAN) 78 % (42-78); TOTAL CELLS COUNTED 100
[2020-07-05 11:38] LABS: ANISOCYTOSIS SLIGHT; HYPOCHROMASIA SLIGHT; PLATELET CLUMPS PRESENT; PLATELET COMMENT ADEQUATE
[2020-07-05 11:40] LABS: PLATELET COUNT 176 10^3/uL (150-450)
--- NOTE | 2020-07-05 11:40 | RADIOLOGY REPORT (SQ) ---
EXAM DESCRIPTION: CHEST SINGLE VIEW IMAGES COMPLETED DATE/TIME: 07/05/2020 11:32 am REASON FOR STUDY: cough/fever COMPARISON: AP view of the chest from 06/04/2020. EXAM PARAMETERS: NUMBER OF VIEWS: One view. TECHNIQUE: An AP view of the chest was obtained. RADIATION DOSE: NA LIMITATIONS: None. FINDINGS: LUNGS AND PLEURA: No consolidation, pleural effusion or pneumothorax. MEDIASTINUM AND HILAR STRUCTURES: No mediastinal or hilar contour abnormality. HEART AND VASCULAR STRUCTURES: The cardiac silhouette and pulmonary vasculature are within normal daily its. BONES: No acute findings. HARDWARE: None in the chest. OTHER: No other finding. IMPRESSION: No acute cardiopulmonary process. TECHNICAL DOCUMENTATION: JOB ID: [id number] 2010 [employer]- All Rights Reserved Reading location - IP/workstation name: [email or web address]
[2020-07-05 12:06] LABS: C-REACTIVE PROTEIN 208.9 mg/L (<10.0)
[2020-07-05 12:18] LABS: A TYPE INFLUENZA AG NEGATIVE (NEGATIVE); B INFLUENZA AG NEGATIVE (NEGATIVE)
--- NOTE | 2020-07-05 13:32 | RADIOLOGY REPORT (SQ) ---
EXAM DESCRIPTION: CTA CHEST IMAGES COMPLETED DATE/TIME: 07/05/2020 1:10 pm REASON FOR STUDY: sobr/fever COMPARISON: AP view of the chest from 07/05/2020. TECHNIQUE: CT scan of the chest performed using helical scanning technique with dynamic intravenous contrast injection. Images reviewed with lung, soft tissue and bone windows. Reconstructed coronal and sagittal MPR images reviewed. Additional 3 dimensional post-processing performed to develop Maximal Intensity Projection images (ND P). All images stored on PACS. All CT scanners at this facility use dose modulation, iterative reconstruction, and/or weight based d osing when appropriate to reduce radiation dose to as low as reasonably achievable (ALARA). [facility]: Dose Right [facility]: CareDose [facility]: Dose Right [facility]: Teradose 4D [facility]: [employer] CONTRAST TYPE AND DOSE: Contrast/concentration: Isovue 350.00 mmol/ml; Total Contrast Delivered: 75. 0 ml; Total Saline Delivered: 65.0 ml Contrast bolus optimized for the pulmonary arteries. RENAL FUNCTION: GFR > 60. RADIATION DOSE: CT Rad equipment meets quality standard of care and radiation dose reduction techniq ues were employed. CTDIvol: 11.4 - 13.2 mGy. DLP: 462 mGy-cm. LIMITATIONS: None. FINDINGS: LUNGS AND PLEURA: The trachea and main bronchi are patent. There is mild bronchial wall t hickening without bronchiectasis or mucus plugging. There is no consolidation, ground-glass opacific ation, pleural effusion or pneumothorax. AORTA AND GREAT VESSELS: No aneurysm of the thoracic aorta. HEART: No cardiomegaly or pericardial effusion. PULMONARY ARTERIES: No emboli. HILAR AND MEDIASTINAL STRUCTURES: Confluent bulky supraclavicular, prevascular, right upper paratrach eal, AP window, right lower paratracheal, left lower paratracheal, sub- carinal, paraesophageal and h ilar adenopathy that in the fam encase the bronchovascular structures. HARDWARE: None in the chest. UPPER ABDOMEN: Upper mesenteric adenopathy and splenomegaly. . THYROID AND OTHER SOFT TISSUES: As above. BONES: Subacute fractures of the left lateral 6 and 7 ribs and right lateral 6th rib. 3D MIPS: Confirm above findings. OTHER: No other findings. IMPRESSION: 1. Bulky supraclavicular, mediastinal, hilar and upper mesenteric adenopathy concerning for lymphoma. 2. Splenomegaly. 3. Mild bronchial wall thickening without bronchiectasis, mucous plugging or consolidation. 4. No pulmonary emboli. COMMENT: This report was called to RADHA HOLBROOK MD at13:25 on 07/05/2020. Quality ID # [id number]: Final reports with documentation of one or more dose reduction techniques (e.g., Au tomated exposure control, adjustment of the mA and/or kV according to patient size, use of iterative reconstruction technique) TECHNICAL DOCUMENTATION: JOB ID: [id number] 2010 [employer]- All Rights Reserved Reading location - IP/workstation name: [email or web address]
[2020-07-05] MEDS ORDERED: NORMAL SALINE 1000 ML 1,000 ML IV ONE (14:50)
--- NOTE | 2020-07-05 15:07 | ER Document Report ---
Entered by PHYLLIS MONTES SCRIBE 07/05/20 1046 Acting as scribe for:RADHA HOLBROOK MD ED General - General Chief Complaint: Vomiting Stated Complaint: VOMITING Information source: Patient, [facility] Records Notes: This 19 year old male patient presents to the emergency department today with complaints of a fever and cough for the past month. Patient states he coughs to where he occasionally vomits, and does not produce a significant amount of sputum otherwise. Patient states he has visited the ED x2 the past months and has x2 negative covid tests (06/04 and 06/18). Denies any sore throat, headache, or diarrhea. Patient states he has a few broken ribs from coughing so much. - Related Data Allergies/Adverse Reactions: Penicillins Allergy (Verified 06/18/20 18:47) Past Medical History - General Information source: Patient, [facility] Records - Social History Smoking Status: Never Smoker Chew tobacco use (# tins/day): No Frequency of alcohol use: None Drug Abuse: None Family History: Reviewed & Not Pertinent Pulmonary Medical History: Reports: Hx Asthma - as a child, Hx Bronchitis, Hx Pneumonia Review of Systems - Review of Systems Constitutional: See HPI, Fever EENT: See HPI. denies: Throat pain Cardiovascular: No symptoms reported Respiratory: See HPI, Cough Gastrointestinal: See HPI, Vomiting. denies: Diarrhea Genitourinary: No symptoms reported Male Genitourinary: No symptoms reported Musculoskeletal: See HPI, Other - rib pain Skin: No symptoms reported Hematologic/Lymphatic: No symptoms reported Neurological/Psychological: See HPI. denies: Headaches -: Yes All other systems reviewed and negative Physical Exam - Vital signs Vitals: Temp Pulse Resp BP Pulse Ox 100.8 F H 144 H 16 113/61 99 07/05/20 09:39 07/05/20 09:39 07/05/20 09:39 07/05/20 09:39 07/05/20 09:39 - General Notes: Alert. Appears non-toxic. - HEENT Head: Normocephalic, Atraumatic Eyes: Normal Pupils: PERRL Pharynx: Normal. No: Erythema Neck: Supple. No: Lymphadenopathy, Meningismus - Respiratory Respiratory status: No respiratory distress Notes: Diminished breath sounds to bases bilaterally. Tenderness with palpation to the anterior left lateral chest wall. - Cardiovascular Rhythm: Regular Heart sounds: Normal auscultation Murmur: No - Abdominal Inspection: Normal - soft Distension: No distension Bowel sounds: Normal Tenderness: Nontender - Extremities General upper extremity: Normal inspection, Normal ROM General lower extremity: Normal inspection, Normal ROM. No: Edema - Neurological Neuro grossly intact: Yes Cognition: Normal Orientation: AAOx4 [place] Coma Scale Eye Opening: Spontaneous [place] Coma Scale Verbal: Oriented [place] Coma Scale Motor: Obeys Commands [place] Coma Scale Total: 15 Speech: Normal Sensory: Normal - Psychological Associated symptoms: Normal affect, Normal mood - Skin Skin Temperature: Warm Skin Color: Normal Skin irregularity: negative: Rash Course - Re-evaluation Re-evalutation: 07/05/20 14:57 Patient resting comfortably at this time. Patient still sweating profusely. Added another liter of normal saline at this time. - Vital Signs Vital signs: Temp Pulse Resp BP Pulse Ox 99.9 F 144 H 16 113/61 99 07/05/20 12:26 07/05/20 09:39 07/05/20 09:39 07/05/20 09:39 07/05/20 09:39 07/05/20 14:57 Vital signs show temperature of 99 9 pulse 144 blood pressure 113/61 with a pulse ox of 99%. Patient is receiving his third liter IV fluids at this time. - Laboratory Results Result Diagrams: 07/05/20 10:29 07/05/20 10:29 Laboratory Results Interpreted: 07/05/20 07/05/20 07/05/20 10:29 10:29 10:29 RBC 4.17 L Hgb 10.9 L Hct 32.0 L MCV 77 L MCH 26.2 L RDW 15.5 H Lymphocytes % (Manual) 6 L Abs Lymphs (Manual) 0.4 L PT 16.5 H D-Dimer 3.61 H Sodium 128.9 L Chloride 94 L Creatinine 1.26 H Glucose 127 H Calcium 8.3 L Ferritin Lactate Dehydrogenase Creatine Kinase C-Reactive Protein Urine Protein Urine Urobilinogen 07/05/20 07/05/20 07/05/20 10:29 10:29 10:29 RBC Hgb Hct MCV MCH RDW Lymphocytes % (Manual) Abs Lymphs (Manual) PT D-Dimer Sodium Chloride Creatinine Glucose Calcium Ferritin 614.00 H Lactate Dehydrogenase 485 H Creatine Kinase 214 H C-Reactive Protein 208.9 H Urine Protein 100 H Urine Urobilinogen 4.0 H Laboratory values are significant for inflammatory markers of a C-reactive protein of 209 a ferritin level of 614 lactate dehydrogenase level of 485. D- dimer elevation as well. Patient shows some metabolic derangement with a sodium of 128 and some dehydration with a creatinine of 1.26. Also calcium somewhat low at 8.3. Critical Laboratory Results Reviewed: No Critical Results - Radiology Results Radiology Results Interpreted: 07/05/20 14:59 Chest X-Ray 07/05/20 10:46 IMPRESSION: No acute cardiopulmonary process. Chest/Abdomen CTA 07/05/20 12:41 IMPRESSION: 1. Bulky supraclavicular, mediastinal, hilar and upper mesenteric adenopathy concerning for lymphoma. 2. Splenomegaly. 3. Mild bronchial wall thickening without bronchiectasis, mucous plugging or consolidation. 4. No pulmonary emboli. Chest x-ray shows no acute cardiopulmonary process. Chest abdomen CTA shows bulky supraclavicular mediastinal, hilar and upper mesenteric adenopathy concerning for lymphoma he also noted to have splenomegaly bronchial wall thickening without bronchiectasis mucus plugging or consolidation and there is no pulmonary emboli noted. Critical Radiology Results Reviewed: Yes Attending or Supervising Physician who Reviewed Radiology: RADHA HOLBROOK - EKG Interpretation by Me Additional EKG results interpreted by me: 07/05/20 15:01 Twelve-lead EKG shows sinus tachycardia rate of 100 normal sinus rhythm MA interval within normal range QRS within normal range QT interval within normal range no acute ST elevation to suggest a STEMI normal axis. Discharge - Discharge Clinical Impression: Lymphoma, Fever, Cough, Recent left rib fractures Condition: Good Disposition: ADMITTED INPATIENT Admitting Provider: Rodger (Hospitalist) Unit Admitted: Medical Floor I personally performed the services described in the documentation, reviewed and edited the documentation which was dictated to the scribe in my presence, and it accurately records my words and actions.
[2020-07-05] MEDS ORDERED: RINGERS SOLUTION,LACTATED 1,000 ML IV PRN (16:37)
[2020-07-05] MEDS ORDERED: MAG HYDROX/AL HYDROX/SIMETH SUSP 30 ML UDCUP PO PRN (16:37)
--- NOTE | 2020-07-05 17:16 | PDOC H&P ---
History of Present Illness Admission Date/PCP: 07/05/20 16:08 Patient complains of: Fever and cough History of Present Illness: ROBI LAU is a 19 year old male who was evaluated in the emergency department on June 04 and June 18. On the he was discharged home with a presumptive diagnosis of viral illness. He reports that on the he was sent home with a presumptive diagnosis of bronchitis. On both occasions he tested Covid negative. He states that he had been getting worse. He states that he has 2 broken ribs from coughing. He has had very poor appetite over the last day or 2. Temperature was 105 on admission. He has been diaphoretic. He feels achy all over. Chest x-ray shows no focal infiltrate but CT scan shows diffuse adenopathy in the subclavicular, mediastinal and mesenteric areas. He also has splenomegaly. There is concern for lymphoma. He is being tested for Covid again. He does work in a restaurant and it is hard to know the degree of personal protection taken by the patient as well as other staff members. Past Medical History Pulmonary Medical History: Reports: Asthma - as a child, Bronchitis, Pneumonia Past Surgical History Past Surgical History: Reports: None Social History Information Source: Patient Lives with: Family Smoking Status: Never Smoker Electronic Cigarette use?: No Frequency of Alcohol Use: None Hx Recreational Drug Use: No Hx Prescription Drug Abuse: No - Advance Directive Resuscitation Status: Full Code Surrogate healthcare decision maker:: His parents, I believe, are the designated decision makers Family History Family History: Reviewed & Not Pertinent - No history of malignancy, Other - Asthma Parental Family History Reviewed: Yes Children Family History Reviewed: Yes Sibling(s) Family History Reviewed.: Yes Medication/Allergy Home Medications: Ibuprofen [Motrin 600 Mg Tablet] 600 mg PO QID #20 tablet 06/05/20 Azithromycin [Zithromax] 250 mg PO DAILY 4 Days #4 tablet 06/18/20 Hydrocodone/Acetaminophen [[place] 5-325 mg Tablet] 1 tab PO Q6HP PRN #12 tablet 06/18/20 Ibuprofen [Motrin 800 mg Tablet] 800 mg PO Q8H #30 tab 06/18/20 Allergies/Adverse Reactions: Penicillins Allergy (Verified 06/18/20 18:47) Review of Systems All systems: reviewed and no additional remarkable complaints except as stated Constitutional: PRESENT: anorexia, fatigue, fever(s) Respiratory: PRESENT: cough Musculoskeletal: PRESENT: other - Rib fractures Integumentary: PRESENT: diaphoresis Physical Exam Vital Signs: Temp Pulse Resp BP Pulse Ox 97.5 F 85 18 102/64 100 07/05/20 15:07 07/05/20 15:07 07/05/20 15:07 07/05/20 15:07 07/05/20 15:07 Intake & Output 07/04/20 07/05/20 07/06/20 06:59 06:59 06:59 Intake Total 2783 Balance 2783 Weight 79.9 kg General appearance: PRESENT: cooperative, well-developed, well-nourished, other - Moderately distressed Head exam: PRESENT: atraumatic, normocephalic Eye exam: PRESENT: conjunctiva pink, EOMI. ABSENT: scleral icterus Ear exam: PRESENT: normal external ear exam. ABSENT: bleeding, drainage Mouth exam: PRESENT: moist, tongue midline Neck exam: PRESENT: lymphadenopathy. ABSENT: carotid bruit, JVD, tracheostomy Respiratory exam: PRESENT: clear to auscultation sanjiv, symmetrical, unlabored. ABSENT: rales, rhonchi, tachypnea, wheezes Cardiovascular exam: PRESENT: RRR, +S1, +S2. ABSENT: bradycardia, diastolic murmur, irregular rhythm, systolic murmur, tachycardia Pulses: PRESENT: normal radial pulses, normal dorsalis pedis pul GI/Abdominal exam: PRESENT: normal bowel sounds, soft. ABSENT: distended, guarding, tenderness Rectal exam: PRESENT: deferred Gentrourinary exam: ABSENT: indwelling catheter Extremities exam: ABSENT: calf tenderness, pedal edema Musculoskeletal exam: PRESENT: ambulatory, normal inspection. ABSENT: deformity, dislocation Neurological exam: PRESENT: alert, awake, oriented to person, oriented to place, oriented to time, oriented to situation, CN II-XII grossly intact. ABSENT: altered Psychiatric exam: PRESENT: appropriate affect - Affect reflects his current state of illness. ABSENT: agitated, anxious Focused psych exam: ABSENT: delusional, paranoid, restlessness Skin exam: PRESENT: dry, normal color, warm, other - Diaphoretic. ABSENT: erythema Results Laboratory Results: 07/05/20 10:29 07/05/20 10:29 07/05/20 07/05/20 07/05/20 10:29 10:29 10:29 WBC 4.1 RBC 4.17 L Hgb 10.9 L Hct 32.0 L MCV 77 L MCH 26.2 L MCHC 34.1 RDW 15.5 H Plt Count 176 Seg Neutrophils % Not Reportable Sodium 128.9 L Potassium 4.0 Chloride 94 L Carbon Dioxide 24 Anion Gap 11 BUN 16 Creatinine 1.26 H Est GFR ( Amer) > 60 Glucose 127 H Lactic Acid Calcium 8.3 L Ferritin Total Bilirubin 1.0 AST 44 Alkaline Phosphatase 93 C-Reactive Protein Total Protein 6.7 Albumin 3.6 Urine Color DARK YELLOW Urine Appearance SLIGHTLY-CLOUDY Urine pH 5.0 Ur Specific [place] 1.023 Urine Protein 100 H Urine Glucose (UA) NEGATIVE Urine Ketones NEGATIVE Urine Blood NEGATIVE Urine Nitrite NEGATIVE Ur Leukocyte Esterase NEGATIVE Urine WBC (Auto) 2 Urine RBC (Auto) 1 07/05/20 07/05/20 10:29 10:29 WBC RBC Hgb Hct MCV MCH MCHC RDW Plt Count Seg Neutrophils % Sodium Potassium Chloride Carbon Dioxide Anion Gap BUN Creatinine Est GFR ( Amer) Glucose Lactic Acid 1.1 Calcium Ferritin 614.00 H Total Bilirubin AST Alkaline Phosphatase C-Reactive Protein 208.9 H Total Protein Albumin Urine Color Urine Appearance Urine pH Ur Specific [place] Urine Protein Urine Glucose (UA) Urine Ketones Urine Blood Urine Nitrite Ur Leukocyte Esterase Urine WBC (Auto) Urine RBC (Auto) 07/05/20 07/05/20 10:29 10:29 Creatine Kinase 214 H Troponin I < 0.012 Impressions: Chest X-Ray 07/05/20 10:46 IMPRESSION: No acute cardiopulmonary process. Chest/Abdomen CTA 07/05/20 12:41 IMPRESSION: 1. Bulky supraclavicular, mediastinal, hilar and upper mesenteric adenopathy concerning for lymphoma. 2. Splenomegaly. 3. Mild bronchial wall thickening without bronchiectasis, mucous plugging or consolidation. 4. No pulmonary emboli. Assessment and Plan - Diagnosis (1) Fever of unknown origin Is this a current diagnosis for this admission?: Yes (2) Cough Is this a current diagnosis for this admission?: Yes (3) Adenopathy Is this a current diagnosis for this admission?: Yes (4) Splenomegaly Is this a current diagnosis for this admission?: Yes (5) Lymphoma Qualifiers: Lymphoma type: unspecified type Lymphoma site: multiple regions Qualified Code(s): C85.98 - Non-Hodgkin lymphoma, unspecified, lymph nodes of multiple sites Is this a current diagnosis for this admission?: Yes (6) Dehydration with hyponatremia Is this a current diagnosis for this admission?: Yes - Plan Summary Summary: (1) Fever of unknown origin (2) Cough (3) Adenopathy (4) Splenomegaly (5) Lymphoma (6) Dehydration with hyponatremia (7) Rib Pain 07/05/2020 Temperature was 105. He was quite diaphoretic. Tylenol and ibuprofen have been ordered. No obvious focus of infection. Will monitor closely. No antibiotics at this time. Cough-antitussives with analgesia for rib pain Adenopathy with splenomegaly is very suspicious for lymphoma. Hematology/oncology will be evaluating the patient. Dehydration with hyponatremia-aggressive fluid resuscitation. This should correct the slightly elevated creatinine. The patient tested Covid negative. Will admit to IMCU for close observation. - Time Time Spent with patient: 35 or more minutes Medications reviewed and adjusted accordingly: Yes Anticipated Discharge Disposition: Unknown Anticipated Discharge Timeframe: Unknown - Inpatient Certification Based on my medical assessment, after consideration of the patient's comorbidities, presenting symptoms, or acuity I expect that the services needed warrant INPATIENT care.: Yes I certify that my determination is in accordance with my understanding of Medicare's requirements for reasonable and necessary INPATIENT services [42 CFR 412.3e].: Yes Medical Necessity: Need Close Monitoring Due to Risk of Patient Decompensation, Need For IV Fluids Post Hospital Care: D/C or Transfer Summary
[2020-07-05] MEDS ORDERED: VANCOMYCIN HCL 0 MG in DEXTROSE 5%-WATER 250 ML IV NR (18:00)
[2020-07-05] MEDS: ASCORBIC ACID 500 MG TABLET PO SCH (19:08)
--- NOTE | 2020-07-05 19:13 | EKG REPORT ---
SEVERITY:- ABNORMAL ECG - SINUS TACHYCARDIA RUN OF VENTRICULAR PREMATURE COMPLEXES NONSPECIFIC INTRAVENTRICULAR CONDUCTION DELAY INFERIOR Q WAVES, PROBABLY NORMAL VARIATION ST DEPRESSION, CONSIDER ISCHEMIA, INF LEADS : Confirmed by: Britni Mosley MD 05-Jul-2020 19:13:21
[2020-07-05] MEDS ORDERED: CEFEPIME 2 GM/D5W RTU 2 GM/50 ML RTUPB IV SCH (19:30)
[2020-07-05] MEDS: MELATONIN 5 MG TABLET PO SCH (22:06)
[2020-07-05] MEDS: ENOXAPARIN SODIUM INJ 80 MG/0.8 ML DISP.SYRIN SUBCUT SCH (22:06)
[2020-07-05] MEDS: VANCOMYCIN HCL 1,250 MG in DEXTROSE 5%-WATER 250 ML IV SCH (22:06)
[2020-07-05] MEDS: ACETAMINOPHEN 325 MG TABLET PO PRN (22:47)
[2020-07-05] MEDS: RINGERS SOLUTION,LACTATED 1,000 ML IV PRN (23:15)
[2020-07-05] MEDS: CEFEPIME HCL 2 GM in DEXTROSE 5%-WATER 50 ML IV SCH (23:15)
[2020-07-06] MEDS: PANTOPRAZOLE SODIUM 20 MG TABLET.DR PO SCH (05:24)
[2020-07-06 06:30] LABS: ALBUMIN 3.1 g/dL (3.5-5.0); ALKALINE PHOSPHATASE 85 U/L (38-126); ANION GAP 9 (5-19); ASPARTATE AMINO TRANSFERASE 53 U/L (17-59); BILIRUBIN,DIRECT 0.4 mg/dL (0.0-0.4); BILIRUBIN,TOTAL 0.9 mg/dL (0.2-1.3); BLOOD UREA NITROGEN 11 mg/dL (7-20); CALCIUM 8.4 mg/dL (8.4-10.2); CARBON DIOXIDE 25 mmol/L (22-30); CHLORIDE 104 mmol/L (98-107); GLUCOSE 106 mg/dL (75-110); POTASSIUM 4.2 mmol/L (3.6-5.0)
[2020-07-06 06:40] LABS: HEMOGLOBIN 10.7 g/dL (13.5-17.0); MEAN CORPUSCULAR HEMOGLOBIN 25.7 pg (27.0-33.4); MEAN CORPUSCULAR HGB CONC 33.4 g/dL (32.0-36.0); MEAN CORPUSCULAR VOLUME 77 fl (80-97); PLATELET COUNT 177 10^3/uL (150-450); RED BLOOD COUNT 4.16 10^6/uL (4.35-5.55); RED CELL DISTRIBUTION WIDTH 15.5 % (11.5-14.0)
[2020-07-06 07:03] LABS: ABSOLUTE LYMPHOCYTES# (MANUAL) 0.1 10^3/uL (0.5-4.7); ABSOLUTE MONOCYTES # (MANUAL) 0.4 10^3/uL (0.1-1.4); BAND NEUTROPHILS % (MANUAL) 1 % (3-5); BASOPHILS % (MANUAL) 0 % (0-2); EOSINOPHILS % (MANUAL) 0 % (0-6); LYMPHOCYTES % (MANUAL) 4 % (13-45); MONOCYTES % (MANUAL) 13 % (3-13); SEGMENTED NEUTROPHILS % (MAN) 82 % (42-78); TOTAL CELLS COUNTED 100
[2020-07-06 07:04] LABS: ANISOCYTOSIS SLIGHT; HYPOCHROMASIA SLIGHT; PLATELET COMMENT ADEQUATE
[2020-07-06] MEDS: ACETAMINOPHEN 325 MG TABLET PO PRN ×2 (08:09→14:35)
[2020-07-06] MEDS: RINGERS SOLUTION,LACTATED 1,000 ML IV PRN ×2 (08:11→21:42)
--- NOTE | 2020-07-06 08:53 | PDOC CONSULTATION ---
Consultation Consult Date: 07/06/20 Provider Consulted: TRACEY OSEGUERA Consult reason:: Hematology/Oncology consultation was requested for abnormal CT with possible lymphoma. History of Present Illness Admission Date/PCP: 07/05/20 16:08 History of Present Illness: ROBI LAU is a 19 year old male who states that he began with a cough the week of . The cough progressed and he developed fevers. He presented to ED and was treated with cough meds and anti-fever meds only. Symptoms continued and he again presented to ED and was treated with Zithromax. However, symptoms continue. He denies dyspnea, but lost his appetite and has a fever with headache almost every day. He is having difficulty swallowing and has not been able to eat much due to the poor appetite. During this stay, he was found to have no PE, but widespread lymphadenopathy and splenomegaly on Chest CT, concerning for possible lymphoma. He was started on Cefapime and Vanc and today, states that his appetite is returning and he is hungry. He is "sick of being sick" and would like to know what is causing this and make it stop. Past Medical History Pulmonary Medical History: Reports: Asthma - as a child, Bronchitis, Pneumonia Psychiatric Medical History: Denies: Depression Past Surgical History Past Surgical History: Reports: None Social History Lives with: Family Smoking Status: Never Smoker Electronic Cigarette use?: No Frequency of Alcohol Use: None Hx Recreational Drug Use: No Hx Prescription Drug Abuse: No - Advance Directive Resuscitation Status: Full Code Family History Family History: Reviewed & Not Pertinent - No history of malignancy, Other - Asthma Parental Family History Reviewed: Yes Children Family History Reviewed: NA Sibling(s) Family History Reviewed.: Yes Medication/Allergy Home Medications: Ibuprofen [Motrin 600 Mg Tablet] 600 mg PO QID #20 tablet 06/05/20 Azithromycin [Zithromax] 250 mg PO DAILY 4 Days #4 tablet 06/18/20 Hydrocodone/Acetaminophen [[place] 5-325 mg Tablet] 1 tab PO Q6HP PRN #12 tablet 06/18/20 Ibuprofen [Motrin 800 mg Tablet] 800 mg PO Q8H #30 tab 06/18/20 Allergies/Adverse Reactions: Penicillins Allergy (Verified 06/18/20 18:47) Review of Systems Constitutional: PRESENT: fever(s), headache(s), night sweats Eyes: ABSENT: visual disturbances Ears: ABSENT: hearing changes Nose, Mouth, and Throat: PRESENT: sore throat Cardiovascular: PRESENT: chest pain Respiratory: PRESENT: cough. ABSENT: dyspnea Gastrointestinal: PRESENT: abdominal pain, diarrhea. ABSENT: constipation, vomiting Genitourinary: ABSENT: dysuria Musculoskeletal: PRESENT: back pain Integumentary: ABSENT: pruritus, rash Neurological: PRESENT: weakness. ABSENT: confusion, dizziness Hematologic/Lymphatic: ABSENT: easy bleeding Physical Exam Vital Signs: Temp Pulse Resp BP Pulse Ox 98.3 F 122 H 20 105/56 L 99 07/06/20 04:00 07/06/20 07:00 07/06/20 04:00 07/06/20 04:00 07/06/20 04:00 Intake & Output 07/05/20 07/06/20 07/07/20 06:59 06:59 06:59 Intake Total 4951 167 Balance 4951 167 Weight 79.5 kg General appearance: PRESENT: no acute distress, thin Exam: 19 year old male. Head exam: PRESENT: atraumatic, normocephalic Eye exam: PRESENT: EOMI, PERRLA Mouth exam: PRESENT: moist, tongue midline Neck exam: ABSENT: lymphadenopathy, tenderness Respiratory exam: PRESENT: unlabored Cardiovascular exam: PRESENT: RRR, tachycardia. ABSENT: systolic murmur GI/Abdominal exam: PRESENT: soft. ABSENT: tenderness Extremities exam: ABSENT: pedal edema Musculoskeletal exam: PRESENT: normal inspection Neurological exam: PRESENT: alert, awake, oriented to person, oriented to place, oriented to time, oriented to situation Psychiatric exam: PRESENT: appropriate affect Skin exam: PRESENT: normal color Results Laboratory Results: 07/06/20 05:49 07/06/20 05:49 07/05/20 07/05/20 07/05/20 10:29 10:29 10:29 WBC 4.1 RBC 4.17 L Hgb 10.9 L Hct 32.0 L MCV 77 L MCH 26.2 L MCHC 34.1 RDW 15.5 H Plt Count 176 Seg Neutrophils % Not Reportable Sodium 128.9 L Potassium 4.0 Chloride 94 L Carbon Dioxide 24 Anion Gap 11 BUN 16 Creatinine 1.26 H Est GFR ( Amer) > 60 Glucose 127 H Lactic Acid Calcium 8.3 L Magnesium Ferritin Total Bilirubin 1.0 AST 44 Alkaline Phosphatase 93 C-Reactive Protein Total Protein 6.7 Albumin 3.6 Urine Color DARK YELLOW Urine Appearance SLIGHTLY-CLOUDY Urine pH 5.0 Ur Specific [place] 1.023 Urine Protein 100 H Urine Glucose (UA) NEGATIVE Urine Ketones NEGATIVE Urine Blood NEGATIVE Urine Nitrite NEGATIVE Ur Leukocyte Esterase NEGATIVE Urine WBC (Auto) 2 Urine RBC (Auto) 1 07/05/20 07/05/20 07/06/20 10:29 10:29 05:49 WBC RBC Hgb Hct MCV MCH MCHC RDW Plt Count Seg Neutrophils % Sodium 137.5 Potassium 4.2 Chloride 104 Carbon Dioxide 25 Anion Gap 9 BUN 11 Creatinine 0.88 Est GFR ( Amer) > 60 Glucose 106 Lactic Acid 1.1 Calcium 8.4 Magnesium 1.8 Ferritin 614.00 H Total Bilirubin 0.9 AST 53 Alkaline Phosphatase 85 C-Reactive Protein 208.9 H Total Protein 6.0 L Albumin 3.1 L Urine Color Urine Appearance Urine pH Ur Specific [place] Urine Protein Urine Glucose (UA) Urine Ketones Urine Blood Urine Nitrite Ur Leukocyte Esterase Urine WBC (Auto) Urine RBC (Auto) 07/06/20 05:49 WBC 3.0 L RBC 4.16 L Hgb 10.7 L Hct 32.0 L MCV 77 L MCH 25.7 L MCHC 33.4 RDW 15.5 H Plt Count 177 Seg Neutrophils % Not Reportable Sodium Potassium Chloride Carbon Dioxide Anion Gap BUN Creatinine Est GFR ( Amer) Glucose Lactic Acid Calcium Magnesium Ferritin Total Bilirubin AST Alkaline Phosphatase C-Reactive Protein Total Protein Albumin Urine Color Urine Appearance Urine pH Ur Specific [place] Urine Protein Urine Glucose (UA) Urine Ketones Urine Blood Urine Nitrite Ur Leukocyte Esterase Urine WBC (Auto) Urine RBC (Auto) 07/05/20 10:29 Blood Blood Culture (PCR) - Final Staphylococcus Species 07/05/20 07/05/20 10:29 10:29 Creatine Kinase 214 H Troponin I < 0.012 Impressions: Chest X-Ray 07/05/20 10:46 IMPRESSION: No acute cardiopulmonary process. Chest/Abdomen CTA 07/05/20 12:41 IMPRESSION: 1. Bulky supraclavicular, mediastinal, hilar and upper mesenteric adenopathy concerning for lymphoma. 2. Splenomegaly. 3. Mild bronchial wall thickening without bronchiectasis, mucous plugging or consolidation. 4. No pulmonary emboli. Status: Image reviewed by me Assessment & Plan - Diagnosis (1) Bronchitis Is this a current diagnosis for this admission?: Yes Plan: Patient has had a prolonged bronchitis. He is currently on appropriate antibiotics. May consider doxycycline if no significant response. His monspot was negative, as was HIV. (2) Adenopathy Is this a current diagnosis for this admission?: Yes Plan: His CT and CBC present a picture more consistent with chronic infection. His WBC count shows more neutrophils without evidence of lymphocytsis. However, lymphoma is still a possibility. I will check CT A/P to see if there are any other areas of lymphadenopathy outside of the chest. If so, may consider excisional biopsy (needle biopsy would not be sufficient). However, would prefer to wait a few weeks to see if symptoms improve with aggressive antibiotics and repeat CT prior to biopsy. - Plan Summary Plan Summary: Thank you for this consultation. I will be happy to follow him with you. Please call with any questions or concerns.
[2020-07-06] MEDS ORDERED: NORMAL SALINE 1000 ML 1,000 ML IV ONE ×3 (09:02→16:30)
[2020-07-06] MEDS: ASCORBIC ACID 500 MG TABLET PO SCH (09:18)
[2020-07-06] MEDS: ENOXAPARIN SODIUM INJ 80 MG/0.8 ML DISP.SYRIN SUBCUT SCH (09:18)
[2020-07-06] MEDS ORDERED: ZINC SULFATE 220 MG CAPSULE PO SCH (10:00)
[2020-07-06] MEDS ORDERED: CHOLECALCIFEROL (D3) 1,000 UNIT (25 MCG) TABLET PO SCH (10:00)
[2020-07-06] MEDS: VANCOMYCIN HCL 1,250 MG in DEXTROSE 5%-WATER 250 ML IV SCH ×2 (10:23→21:42)
[2020-07-06] MEDS: CEFEPIME HCL 2 GM in DEXTROSE 5%-WATER 50 ML IV SCH ×2 (12:03→23:29)
--- NOTE | 2020-07-06 15:21 | RADIOLOGY REPORT (SQ) ---
EXAM DESCRIPTION: CT ABD/PELVIS WITH IV ONLY IMAGES COMPLETED DATE/TIME: 07/06/2020 1:56 pm REASON FOR STUDY: evaluate for lymphoma COMPARISON: None. TECHNIQUE: CT scan of the abdomen and pelvis performed using helical scanning technique with dynamic intravenous contrast injection. No oral contrast. Images reviewed with lung, soft tissue, and bone windows. Reconstructed coronal and sagittal MPR images reviewed. Delayed images for evaluation of the urinary system also acquired. All images stored on PACS. All CT scanners at this facility use dose modulation, iterative reconstruction, and/or weight based d osing when appropriate to reduce radiation dose to as low as reasonably achievable (ALARA). [facility]: Dose Right [facility]: CareDose [facility]: Dose Right [facility]: Teradose 4D [facility]: [employer] CONTRAST TYPE AND DOSE: contrast/concentration: Isovue 350.00 mmol/ml; Total Contrast Delivered: 89. 0 ml; Total Saline Delivered: 70.0 ml RENAL FUNCTION: BUN 11 creatinine 0.88 RADIATION DOSE: CT Rad equipment meets quality standard of care and radiation dose reduction techniq ues were employed. CTDIvol: 7.0 - 7.1 mGy. DLP: 785 mGy-cm.. LIMITATIONS: None. FINDINGS: LOWER CHEST: Cannot exclude adenopathy in the posterior mediastinum visible on the 1st few images. LIVER: Normal size. No masses. No dilated ducts. SPLEEN: Splenomegaly. PANCREAS: No masses. No significant calcifications. No adjacent inflammation or peripancreatic fluid collections. Pancreatic duct not dilated. GALLBLADDER: No identified stones by CT criteria. No inflammatory changes to suggest cholecystitis. ADRENAL GLANDS: No significant masses or asymmetry. RIGHT KIDNEY AND URETER: No solid masses. No significant calcifications. No hydronephrosis or hyd roureter. LEFT KIDNEY AND URETER: No solid masses. No significant calcifications. No hydronephrosis or hydr oureter. AORTA AND VESSELS: No aneurysm. No dissection. Renal arteries, SMA, celiac without stenosis. RETROPERITONEUM: Small periaortic lymph nodes are present. BOWEL AND PERITONEAL CAVITY: No masses or inflammatory changes. No free fluid or peritoneal masses. APPENDIX: Not identified. PELVIS: No mass. No free fluid. Normal bladder. ABDOMINAL WALL: No masses. No hernias. BONES: No significant or acute findings. OTHER: No other significant finding. IMPRESSION: 1. Splenomegaly. There are multiple small periaortic lymph nodes. 2. Cannot exclude adenopathy in the posterior mediastinum on the 1st few images. TECHNICAL DOCUMENTATION: JOB ID: [id number] Quality ID # [id number]: Final reports with documentation of one or more dose reduction techniques (e.g., Au tomated exposure control, adjustment of the mA and/or kV according to patient size, use of iterative reconstruction technique) 2010 [employer]- All Rights Reserved Reading location - IP/workstation name: [email or web address]
[2020-07-06 15:49] LABS: FOLATE 9.54 ng/mL (>2.76)
[2020-07-06] MEDS: ONDANSETRON HCL INJ/PF 4 MG/2 ML SDV IV PRN (15:52)
--- NOTE | 2020-07-06 15:59 | PDOC PROGRESS REPORT ---
Subjective Date:: 07/06/20 Subjective:: Patient states that he has been having cough since Halloween night. He is still been having fevers at home and fevers here in the hospital. He denies any shortness of breath. Denies any family history of malignancies. He has had treatment with azithromycin as outpatient. He denies any skin lesions denies arthritis. Reason For Visit: FEVER UNKOWN ORIGIN,POSSIBLE COVID VIRUS INFECTION Physical Exam Vital Signs: Temp Pulse Resp BP Pulse Ox 98.3 F 118 H 17 118/73 98 07/06/20 11:42 07/06/20 14:00 07/06/20 11:42 07/06/20 11:42 07/06/20 11:42 Intake & Output 07/05/20 07/06/20 07/07/20 06:59 06:59 06:59 Intake Total 4951 2016 Balance 4951 2016 Weight 79.5 kg General appearance: PRESENT: no acute distress, cooperative Neck exam: ABSENT: JVD Respiratory exam: PRESENT: clear to auscultation sanjiv, symmetrical, unlabored. ABSENT: crackles, tachypnea, wheezes Cardiovascular exam: PRESENT: +S1, +S2, tachycardia. ABSENT: irregular rhythm GI/Abdominal exam: PRESENT: normal bowel sounds, soft. ABSENT: ascites, di stended, firm, guarding, rebound, rigid, tenderness Extremities exam: ABSENT: calf tenderness, pedal edema, +1 edema, +2 edema Musculoskeletal exam: PRESENT: ambulatory Neurological exam: PRESENT: alert, awake, oriented to person, oriented to place, oriented to time, oriented to situation Psychiatric exam: ABSENT: agitated, anxious Focused psych exam: ABSENT: pressured speech Results Laboratory Results: 07/06/20 05:49 07/06/20 05:49 07/06/20 07/06/20 05:49 05:49 WBC 3.0 L RBC 4.16 L Hgb 10.7 L Hct 32.0 L MCV 77 L MCH 25.7 L MCHC 33.4 RDW 15.5 H Plt Count 177 Seg Neutrophils % Not Reportable Sodium 137.5 Potassium 4.2 Chloride 104 Carbon Dioxide 25 Anion Gap 9 BUN 11 Creatinine 0.88 Est GFR ( Amer) > 60 Glucose 106 Calcium 8.4 Magnesium 1.8 Total Bilirubin 0.9 AST 53 Alkaline Phosphatase 85 Total Protein 6.0 L Albumin 3.1 L 07/05/20 10:29 Blood Blood Culture (PCR) - Final Staphylococcus Species 07/05/20 07/05/20 10:29 10:29 Creatine Kinase 214 H Troponin I < 0.012 Impressions: Chest X-Ray 07/05/20 10:46 IMPRESSION: No acute cardiopulmonary process. Chest/Abdomen CTA 07/05/20 12:41 IMPRESSION: 1. Bulky supraclavicular, mediastinal, hilar and upper mesenteric adenopathy concerning for lymphoma. 2. Splenomegaly. 3. Mild bronchial wall thickening without bronchiectasis, mucous plugging or consolidation. 4. No pulmonary emboli. Abdomen/Pelvis CT 07/06/20 13:15 IMPRESSION: 1. Splenomegaly. There are multiple small periaortic lymph nodes. 2. Cannot exclude adenopathy in the posterior mediastinum on the 1st few images. Assessment and Plan - Diagnosis (1) Fever of unknown origin Is this a current diagnosis for this admission?: Yes Plan: Etiology unknown. It is unlikely that viral or bacterial bronchitis will be causing fevers this far out given that his symptoms started on . Completed azithromycin outpatient. Blood cultures are negative besides contaminants. I will repeat blood cultures. Receiving antibiotics Oncology on board for consideration of blood malignancy. ID consult Tylenol and NSAIDs as needed. (2) Adenopathy Is this a current diagnosis for this admission?: Yes Plan: Multiple lymphadenopathy involving his supraclavicular, hilar, mediastinal, and upper mesenteric lymph nodes. CT abdomen/pelvis today also shows involvement of his retroperitoneal paraortic nodes. Associated with splenomegaly and fevers. HIV negative. Lumpkin test is negative. Covid and influenza are negative. Oncology consulted due to concerns for lymphoma/leukemia. Considering excisional biopsy. (3) SIRS (systemic inflammatory response syndrome) Is this a current diagnosis for this admission?: Yes Plan: Patient was very tachycardic in the 160s this morning sinus rhythm. Still spiking fevers. Antipyretics as needed. Tachycardia did improve to 107 after bolus of normal saline. Also has high inflammatory markers. We will continue to monitor. Maintain on telemetry. Continue IV fluids. Monitor strict I's and O's. Of note infectious source is not clear. (4) Bronchitis Is this a current diagnosis for this admission?: Yes Plan: He has been dealing with this for about 6 weeks now. He has been treated outpatient with azithromycin with improvement. Continues to spike fevers. Check respiratory viral panel. (5) Elevated d-dimer Is this a current diagnosis for this admission?: Yes Plan: CTA negative for PE. (6) Splenomegaly Is this a current diagnosis for this admission?: Yes (7) Dehydration with hyponatremia Is this a current diagnosis for this admission?: Yes Plan: Sodium is normalized. (8) Left rib fracture Qualifiers: Encounter type: initial encounter Rib fracture type: multiple ribs Fracture type: closed Qualified Code(s): S22.42XA - Multiple fractures of ribs, left side, initial encounter for closed fracture Is this a current diagnosis for this admission?: Yes Plan: subacute rib fractures. Reports is secondary to coughing very hard. Supportive management. Calcium is normal. - Time Time Spent with patient: 15-24 minutes Anticipated Discharge Disposition: Home, Self Care Anticipated Discharge Timeframe: within 72 hours
[2020-07-06] MEDS ORDERED: MEROPENEM 1 GM VIAL IV ONE (16:18)
[2020-07-06] MEDS: IBUPROFEN 600 MG TABLET PO PRN (16:24)
[2020-07-06] MEDS: MEROPENEM 1 GM in NORMAL SALINE 50 ML IV SCH (18:11)
[2020-07-06] MEDS: MELATONIN 5 MG TABLET PO SCH (21:42)
[2020-07-06] MEDS ORDERED: MEROPENEM 500 MG VIAL IV SCH (22:00)
[2020-07-07] MEDS: MEROPENEM 1 GM in NORMAL SALINE 50 ML IV SCH ×3 (01:36→17:38)
--- NOTE | 2020-07-07 02:03 | EKG REPORT ---
SEVERITY:- OTHERWISE NORMAL ECG - SINUS TACHYCARDIA : Confirmed by: Britni Mosley MD 07-Jul-2020 02:02:34
[2020-07-07] MEDS: PANTOPRAZOLE SODIUM 20 MG TABLET.DR PO SCH (05:24)
[2020-07-07 05:46] LABS: APPEARANCE,URINE CLEAR; BILIRUBIN,URINE NEGATIVE (NEGATIVE); COLOR,URINE YELLOW; GLUCOSE, URINE NEGATIVE (NEGATIVE); KETONES,URINE NEGATIVE (NEGATIVE); LEUKOCYTE ESTERASE,URINE NEGATIVE (NEGATIVE); NITRITE,URINE NEGATIVE (NEGATIVE); PROTEIN,URINE NEGATIVE (NEGATIVE); URINE SPECIFIC GRAVITY 1.009
[2020-07-07 06:38] LABS: HEMOGLOBIN 10.8 g/dL (13.5-17.0); MEAN CORPUSCULAR HEMOGLOBIN 26.1 pg (27.0-33.4); MEAN CORPUSCULAR HGB CONC 33.8 g/dL (32.0-36.0); MEAN CORPUSCULAR VOLUME 77 fl (80-97); PLATELET COUNT 162 10^3/uL (150-450); RED BLOOD COUNT 4.15 10^6/uL (4.35-5.55); WHITE BLOOD COUNT 2.1 10^3/uL (4.0-10.5)
[2020-07-07] MEDS: ACETAMINOPHEN 325 MG TABLET PO PRN ×2 (06:54→16:28)
[2020-07-07 06:56] LABS: ALKALINE PHOSPHATASE 77 U/L (38-126); ANION GAP 8 (5-19); ASPARTATE AMINO TRANSFERASE 55 U/L (17-59); BILIRUBIN,DIRECT 0.4 mg/dL (0.0-0.4); BILIRUBIN,TOTAL 0.8 mg/dL (0.2-1.3); BLOOD UREA NITROGEN 7 mg/dL (7-20); CALCIUM 8.5 mg/dL (8.4-10.2); CARBON DIOXIDE 27 mmol/L (22-30); CHLORIDE 106 mmol/L (98-107); GLUCOSE 96 mg/dL (75-110); PHOSPHORUS 2.6 mg/dL (2.5-4.5); POTASSIUM 4.3 mmol/L (3.6-5.0)
[2020-07-07] MEDS ORDERED: DEXTROSE 40% GEL 15 GM TUBE PO PRN ×4 (08:37→19:10)
[2020-07-07] MEDS ORDERED: GLUCAGON,HUMAN RECOMB 1 MG INJ SUBCUT PRN ×2 (08:37→19:10)
[2020-07-07] MEDS ORDERED: DEXTROSE 50%-WATER 25 GM/50 ML DISP.SYRIN IV PRN ×4 (08:37→19:10)
--- NOTE | 2020-07-07 09:14 | PDOC CONSULTATION ---
Consultation Consult Date: 07/07/20 Attending physician:: BRANDIE URRUTIA Provider Consulted: TITI FIGUEROA Consult reason:: lymph node bx History of Present Illness Admission Date/PCP: 07/05/20 16:08 History of Present Illness: ROBI LAU is a 19 year old male who was evaluated in the emergency department on June 04 and June 18. On the he was discharged home with a presumptive diagnosis of viral illness. He reports that on the he was sent home with a presumptive diagnosis of bronchitis. On both occasions he tested Covid negative. He states that he had been getting worse. He states that he has 2 broken ribs from coughing. He has had very poor appetite over the last day or 2. Temperature was 105 on admission. He has been diaphoretic. He feels achy all over. Chest x-ray shows no focal infiltrate but CT scan shows diffuse adenopathy in the subclavicular, mediastinal and mesenteric areas. He also has splenomegaly. There is concern for lymphoma. He is being tested for Covid again. He does work in a restaurant and it is hard to know the degree of personal protection taken by the patient as well as other staff members Past Medical History Pulmonary Medical History: Reports: Asthma - as a child, Bronchitis, Pneumonia Psychiatric Medical History: Denies: Depression Past Surgical History Past Surgical History: Reports: None Social History Lives with: Family Smoking Status: Never Smoker Electronic Cigarette use?: No Frequency of Alcohol Use: None Hx Recreational Drug Use: No Hx Prescription Drug Abuse: No - Advance Directive Resuscitation Status: Full Code Family History Family History: Reviewed & Not Pertinent - No history of malignancy, Other - Asthma Parental Family History Reviewed: No Children Family History Reviewed: NA Sibling(s) Family History Reviewed.: NA Medication/Allergy Home Medications: Ibuprofen [Motrin 800 mg Tablet] 800 mg PO Q8 07/06/20 Allergies/Adverse Reactions: Penicillins Allergy (Verified 06/18/20 18:47) Review of Systems Constitutional: PRESENT: fever(s), night sweats Eyes: ABSENT: as per HPI, visual disturbances, other Ears: ABSENT: as per HPI, hearing changes, other Nose, Mouth, and Throat: ABSENT: as per HPI, headache(s), mouth pain, sore throat, vertigo, other Breasts: ABSENT: as per HPI, other Cardiovascular: ABSENT: as per HPI, chest pain, dyspnea on exertion, edema, orthropnea, palpitations, other Respiratory: PRESENT: cough Gastrointestinal: ABSENT: as per HPI, abdominal pain, bloating, coffee ground emesis, constipation, diarrhea, dysphagia, heartburn, hematemesis, hematochezia, melena, nausea, vomiting, other Genitourinary: ABSENT: as per HPI, difficulty urinating, dysuria, hematuria, nocturia, other Musculoskeletal: ABSENT: as per HPI, back pain, deformity, joint swelling, muscle weakness, other Integumentary: PRESENT: diaphoresis Neurological: ABSENT: as per HPI, abnormal gait, abnormal movements, abnormal speech, confusion, convulsions, dizziness, focal weakness, frequent falls, lack of coordination, memory loss, numbness, paresthesias, restless legs, syncope, tingling, tremor(s), vertigo, weakness, other Psychiatric: ABSENT: as per HPI, anxiety, depression, hallucinations, homidical ideation, suicidal ideation, other Endocrine: ABSENT: as per HPI, cold intolerance, flushing, heat intolerance, menstrual abnormalities, polydipsia, polyphagia, polyuria, other Hematologic/Lymphatic: ABSENT: as per HPI, easy bleeding, easy bruising, lymphadenopathy, other Allergic/Immunologic: ABSENT: as per HPI, seasonal rhinorrhea, other Physical Exam Vital Signs: Temp Pulse Resp BP Pulse Ox 99.9 F 109 H 17 112/46 L 96 07/07/20 08:23 07/07/20 07:57 07/07/20 07:57 07/07/20 07:57 07/07/20 07:57 Intake & Output 07/06/20 07/07/20 07/08/20 06:59 06:59 06:59 Intake Total 4951 6196 Output Total 2800 Balance 4951 5946 Weight 79.5 kg 80.8 kg General appearance: PRESENT: no acute distress Head exam: PRESENT: normocephalic Eye exam: PRESENT: EOMI Ear exam: PRESENT: normal external ear exam Mouth exam: PRESENT: moist Neck exam: PRESENT: other - right sided lymph adenopathy 2-3 cm mobile nodes Respiratory exam: PRESENT: clear to auscultation sanjiv Cardiovascular exam: PRESENT: RRR Pulses: PRESENT: normal radial pulses, normal femoral pulses Breast: PRESENT: Normal GI/Abdominal exam: PRESENT: soft Rectal exam: PRESENT: deferred Extremities exam: PRESENT: full ROM Neurological exam: PRESENT: alert, awake, oriented to person, oriented to place Psychiatric exam: PRESENT: appropriate affect Skin exam: PRESENT: dry Results Laboratory Results: 07/07/20 05:42 07/07/20 05:42 07/06/20 07/07/20 07/07/20 05:49 05:30 05:42 WBC RBC Hgb Hct MCV MCH MCHC RDW Plt Count Sodium 141.1 Potassium 4.3 Chloride 106 Carbon Dioxide 27 Anion Gap 8 BUN 7 Creatinine 0.73 Est GFR ( Amer) > 60 Glucose 96 Calcium 8.5 Phosphorus 2.6 Magnesium 1.9 Total Bilirubin 0.8 AST 55 Alkaline Phosphatase 77 Total Protein 6.0 L Albumin 3.0 L Vitamin B12 517.0 Folate 9.54 Urine Color YELLOW Urine Appearance CLEAR Urine pH 7.0 Ur Specific [place] 1.009 Urine Protein NEGATIVE Urine Glucose (UA) NEGATIVE Urine Ketones NEGATIVE Urine Blood NEGATIVE Urine Nitrite NEGATIVE Ur Leukocyte Esterase NEGATIVE Urine WBC (Auto) 1 Urine RBC (Auto) 0 07/07/20 05:42 WBC 2.1 L RBC 4.15 L Hgb 10.8 L Hct 32.0 L MCV 77 L MCH 26.1 L MCHC 33.8 RDW 16.0 H Plt Count 162 Sodium Potassium Chloride Carbon Dioxide Anion Gap BUN Creatinine Est GFR ( Amer) Glucose Calcium Phosphorus Magnesium Total Bilirubin AST Alkaline Phosphatase Total Protein Albumin Vitamin B12 Folate Urine Color Urine Appearance Urine pH Ur Specific [place] Urine Protein Urine Glucose (UA) Urine Ketones Urine Blood Urine Nitrite Ur Leukocyte Esterase Urine WBC (Auto) Urine RBC (Auto) 07/05/20 10:29 Blood Blood Culture (PCR) - Final Staphylococcus Species 07/05/20 07/05/20 10:29 10:29 Creatine Kinase 214 H Troponin I < 0.012 Impressions: Chest X-Ray 07/05/20 10:46 IMPRESSION: No acute cardiopulmonary process. Chest/Abdomen CTA 07/05/20 12:41 IMPRESSION: 1. Bulky supraclavicular, mediastinal, hilar and upper mesenteric adenopathy concerning for lymphoma. 2. Splenomegaly. 3. Mild bronchial wall thickening without bronchiectasis, mucous plugging or consolidation. 4. No pulmonary emboli. Abdomen/Pelvis CT 07/06/20 13:15 IMPRESSION: 1. Splenomegaly. There are multiple small periaortic lymph nodes. 2. Cannot exclude adenopathy in the posterior mediastinum on the 1st few images. Assessment & Plan - Plan Summary Plan Summary: pt admitted for high fever [address] cough covid neg ct diffuse lymphadenopathy splenomegaly needs lymphnode bx for dx
[2020-07-07] MEDS: ENOXAPARIN SODIUM INJ 80 MG/0.8 ML DISP.SYRIN SUBCUT SCH (09:41)
[2020-07-07] MEDS: GUAIFENESIN 600 MG TABLET.SA PO SCH ×3 (09:41→21:07)
[2020-07-07] MEDS: RINGERS SOLUTION,LACTATED 1,000 ML IV PRN (09:45)
[2020-07-07] MEDS: VANCOMYCIN HCL 1,250 MG in DEXTROSE 5%-WATER 250 ML IV SCH (10:31)
--- NOTE | 2020-07-07 12:27 | PDOC PROGRESS REPORT ---
Subjective Date:: 07/07/20 Subjective:: Patient feeling about the same. No new complaints, but having cough to the poin t of vomiting. Was able to eat yesterday, but did not keep this down. No other concerns. Reason For Visit: FEVER UNKOWN ORIGIN,POSSIBLE COVID VIRUS INFECTION Physical Exam Vital Signs: Temp Pulse Resp BP Pulse Ox 98.3 F 92 16 108/67 97 07/07/20 11:40 07/07/20 11:40 07/07/20 11:40 07/07/20 11:40 07/07/20 11:40 Intake & Output 07/06/20 07/07/20 07/08/20 06:59 06:59 06:59 Intake Total 4951 6196 979 Output Total 2800 Balance 4951 3396 979 Weight 79.5 kg 80.8 kg General appearance: PRESENT: no acute distress Head exam: PRESENT: normocephalic Eye exam: PRESENT: EOMI Respiratory exam: PRESENT: unlabored Cardiovascular exam: PRESENT: tachycardia Neurological exam: PRESENT: alert, awake Skin exam: PRESENT: normal color Results Laboratory Results: 07/07/20 05:42 07/07/20 05:42 07/06/20 07/07/20 07/07/20 05:49 05:30 05:42 WBC RBC Hgb Hct MCV MCH MCHC RDW Plt Count Sodium 141.1 Potassium 4.3 Chloride 106 Carbon Dioxide 27 Anion Gap 8 BUN 7 Creatinine 0.73 Est GFR ( Amer) > 60 Glucose 96 Calcium 8.5 Phosphorus 2.6 Magnesium 1.9 Total Bilirubin 0.8 AST 55 Alkaline Phosphatase 77 Total Protein 6.0 L Albumin 3.0 L Vitamin B12 517.0 Folate 9.54 Urine Color YELLOW Urine Appearance CLEAR Urine pH 7.0 Ur Specific [place] 1.009 Urine Protein NEGATIVE Urine Glucose (UA) NEGATIVE Urine Ketones NEGATIVE Urine Blood NEGATIVE Urine Nitrite NEGATIVE Ur Leukocyte Esterase NEGATIVE Urine WBC (Auto) 1 Urine RBC (Auto) 0 07/07/20 05:42 WBC 2.1 L RBC 4.15 L Hgb 10.8 L Hct 32.0 L MCV 77 L MCH 26.1 L MCHC 33.8 RDW 16.0 H Plt Count 162 Sodium Potassium Chloride Carbon Dioxide Anion Gap BUN Creatinine Est GFR ( Amer) Glucose Calcium Phosphorus Magnesium Total Bilirubin AST Alkaline Phosphatase Total Protein Albumin Vitamin B12 Folate Urine Color Urine Appearance Urine pH Ur Specific [place] Urine Protein Urine Glucose (UA) Urine Ketones Urine Blood Urine Nitrite Ur Leukocyte Esterase Urine WBC (Auto) Urine RBC (Auto) 07/05/20 10:29 Clean Catch Midstream Urine Culture - Final NO GROWTH 2 DAYS 07/05/20 10:29 Blood Blood Culture (PCR) - Final Staphylococcus Species 07/05/20 07/05/20 10:29 10:29 Creatine Kinase 214 H Troponin I < 0.012 Impressions: Chest X-Ray 07/05/20 10:46 IMPRESSION: No acute cardiopulmonary process. Chest/Abdomen CTA 07/05/20 12:41 IMPRESSION: 1. Bulky supraclavicular, mediastinal, hilar and upper mesenteric adenopathy concerning for lymphoma. 2. Splenomegaly. 3. Mild bronchial wall thickening without bronchiectasis, mucous plugging or consolidation. 4. No pulmonary emboli. Abdomen/Pelvis CT 07/06/20 13:15 IMPRESSION: 1. Splenomegaly. There are multiple small periaortic lymph nodes. 2. Cannot exclude adenopathy in the posterior mediastinum on the 1st few images. Assessment & Plan - Diagnosis (1) Bronchitis Is this a current diagnosis for this admission?: Yes Plan: Antibiotics are ongoing. 1 blood culture was positive, but this may have been a contaminant. All other NGTD. I will add mucinex BID. (2) Adenopathy Is this a current diagnosis for this admission?: Yes Plan: I agree with plans for excisional LN biopsy to rule out lymphoma. This should include flow cytometry. - Time Time Spent with patient: Less than 15 minutes
--- NOTE | 2020-07-07 14:05 | PDOC PROGRESS REPORT ---
Subjective Date:: 07/07/20 Subjective:: Denies any shortness of breath. Still coughing. Fevers seem to be slowing. Reason For Visit: FEVER UNKOWN ORIGIN,POSSIBLE COVID VIRUS INFECTION Physical Exam Vital Signs: Temp Pulse Resp BP Pulse Ox 98.3 F 92 16 108/67 97 07/07/20 11:40 07/07/20 11:40 07/07/20 11:40 07/07/20 11:40 07/07/20 11:40 Intake & Output 07/06/20 07/07/20 07/08/20 06:59 06:59 06:59 Intake Total 4951 6196 1229 Output Total 2800 Balance 4951 3396 1229 Weight 79.5 kg 80.8 kg General appearance: PRESENT: no acute distress, cooperative Neck exam: ABSENT: JVD Respiratory exam: PRESENT: clear to auscultation sanjiv, symmetrical, unlabored. ABSENT: accessory muscle use, crackles, decreased breath sounds, retraction, tachypnea, wheezes Cardiovascular exam: PRESENT: +S1, +S2, tachycardia. ABSENT: irregular rhythm GI/Abdominal exam: PRESENT: soft. ABSENT: rebound, rigid, tenderness Neurological exam: PRESENT: alert, awake, oriented to person, oriented to place, oriented to time, oriented to situation Psychiatric exam: ABSENT: agitated, anxious Skin exam: PRESENT: other - Damp. ABSENT: jaundice Results Laboratory Results: 07/07/20 05:42 07/07/20 05:42 07/06/20 07/07/20 07/07/20 05:49 05:30 05:42 WBC RBC Hgb Hct MCV MCH MCHC RDW Plt Count Sodium 141.1 Potassium 4.3 Chloride 106 Carbon Dioxide 27 Anion Gap 8 BUN 7 Creatinine 0.73 Est GFR ( Amer) > 60 Glucose 96 Calcium 8.5 Phosphorus 2.6 Magnesium 1.9 Total Bilirubin 0.8 AST 55 Alkaline Phosphatase 77 Total Protein 6.0 L Albumin 3.0 L Vitamin B12 517.0 Folate 9.54 Urine Color YELLOW Urine Appearance CLEAR Urine pH 7.0 Ur Specific [place] 1.009 Urine Protein NEGATIVE Urine Glucose (UA) NEGATIVE Urine Ketones NEGATIVE Urine Blood NEGATIVE Urine Nitrite NEGATIVE Ur Leukocyte Esterase NEGATIVE Urine WBC (Auto) 1 Urine RBC (Auto) 0 07/07/20 05:42 WBC 2.1 L RBC 4.15 L Hgb 10.8 L Hct 32.0 L MCV 77 L MCH 26.1 L MCHC 33.8 RDW 16.0 H Plt Count 162 Sodium Potassium Chloride Carbon Dioxide Anion Gap BUN Creatinine Est GFR ( Amer) Glucose Calcium Phosphorus Magnesium Total Bilirubin AST Alkaline Phosphatase Total Protein Albumin Vitamin B12 Folate Urine Color Urine Appearance Urine pH Ur Specific [place] Urine Protein Urine Glucose (UA) Urine Ketones Urine Blood Urine Nitrite Ur Leukocyte Esterase Urine WBC (Auto) Urine RBC (Auto) 07/07/20 06:50 Sputum Gram Stain - Final 07/07/20 06:50 Sputum Sputum Culture - Final 07/05/20 10:29 Clean Catch Midstream Urine Culture - Final NO GROWTH 2 DAYS 07/05/20 10:29 Blood Blood Culture (PCR) - Final Staphylococcus Species 07/05/20 07/05/20 10:29 10:29 Creatine Kinase 214 H Troponin I < 0.012 Impressions: Chest X-Ray 07/05/20 10:46 IMPRESSION: No acute cardiopulmonary process. Chest/Abdomen CTA 07/05/20 12:41 IMPRESSION: 1. Bulky supraclavicular, mediastinal, hilar and upper mesenteric adenopathy concerning for lymphoma. 2. Splenomegaly. 3. Mild bronchial wall thickening without bronchiectasis, mucous plugging or consolidation. 4. No pulmonary emboli. Abdomen/Pelvis CT 07/06/20 13:15 IMPRESSION: 1. Splenomegaly. There are multiple small periaortic lymph nodes. 2. Cannot exclude adenopathy in the posterior mediastinum on the 1st few images. Assessment and Plan - Diagnosis (1) Fever of unknown origin Is this a current diagnosis for this admission?: Yes Plan: Etiology unknown. It is unlikely that viral or bacterial bronchitis will be causing fevers this far out given that his symptoms started on . Completed azithromycin outpatient. Blood cultures are negative besides contaminants. Receiving antibiotics Oncology on board for consideration of blood malignancy. ID consult Tylenol and NSAIDs as needed. (2) Adenopathy Is this a current diagnosis for this admission?: Yes Plan: Multiple lymphadenopathy involving his supraclavicular, hilar, mediastinal, and upper mesenteric lymph nodes. CT abdomen/pelvis today also shows involvement of his retroperitoneal paraortic nodes. Associated with splenomegaly and fevers. Leukopenic today. Continue to monitor CBC. HIV negative. Mcclain test is negative. Covid and influenza are negative. Respiratory viral panel negative. Oncology consulted due to concerns for lymphoma/leukemia. Surgery consulted for excisional biopsy. Will likely target supraclavicular lymph node for biopsy and flow cytometry. (3) SIRS (systemic inflammatory response syndrome) Is this a current diagnosis for this admission?: Yes Plan: Not as tachycardic today. Monitor. Receiving IV fluids and antibiotics. (4) Bronchitis Is this a current diagnosis for this admission?: Yes Plan: He has been dealing with this for about 6 weeks now. He has been treated outpatient with azithromycin with improvement. Respiratory viral panel negative. (5) Elevated d-dimer Is this a current diagnosis for this admission?: Yes Plan: CTA negative for PE. (6) Splenomegaly Is this a current diagnosis for this admission?: Yes (7) Dehydration with hyponatremia Is this a current diagnosis for this admission?: Yes Plan: Sodium is normalized. (8) Left rib fracture Qualifiers: Encounter type: initial encounter Rib fracture type: multiple ribs Fracture type: closed Qualified Code(s): S22.42XA - Multiple fractures of ribs, left side, initial encounter for closed fracture Is this a current diagnosis for this admission?: Yes - Time Time Spent with patient: 15-24 minutes Anticipated Discharge Disposition: Home, Self Care Anticipated Discharge Timeframe: within 72 hours
[2020-07-07] MEDS: IBUPROFEN 600 MG TABLET PO PRN (15:37)
[2020-07-07] MEDS: ONDANSETRON HCL INJ/PF 4 MG/2 ML SDV IV PRN (15:45)
[2020-07-07] MEDS: VANCOMYCIN HCL 1,000 MG in DEXTROSE 5%-WATER 250 ML IV SCH (18:19)
[2020-07-07] MEDS: MELATONIN 5 MG TABLET PO SCH (21:07)
[2020-07-08] MEDS: VANCOMYCIN HCL 1,000 MG in DEXTROSE 5%-WATER 250 ML IV SCH ×2 (00:24→05:07)
[2020-07-08] MEDS: RINGERS SOLUTION,LACTATED 1,000 ML IV PRN ×2 (02:27→19:19)
[2020-07-08] MEDS: MEROPENEM 1 GM in NORMAL SALINE 50 ML IV SCH ×3 (02:28→17:49)
[2020-07-08] MEDS: PANTOPRAZOLE SODIUM 20 MG TABLET.DR PO SCH (05:07)
[2020-07-08 06:08] LABS: ALBUMIN 3.1 g/dL (3.5-5.0); ALKALINE PHOSPHATASE 89 U/L (38-126); ANION GAP 7 (5-19); ASPARTATE AMINO TRANSFERASE 59 U/L (17-59); BILIRUBIN,DIRECT 0.3 mg/dL (0.0-0.4); BILIRUBIN,TOTAL 0.8 mg/dL (0.2-1.3); BLOOD UREA NITROGEN 4 mg/dL (7-20); CALCIUM 8.6 mg/dL (8.4-10.2); CARBON DIOXIDE 29 mmol/L (22-30); CHLORIDE 103 mmol/L (98-107); GLUCOSE 107 mg/dL (75-110); POTASSIUM 4.2 mmol/L (3.6-5.0); TOTAL PROTEIN 6.1 g/dL (6.3-8.2)
[2020-07-08] MEDS ORDERED: DEXAMETHASONE SOD PHOSPHATE INJ 4 MG/1 ML VIAL ONE (07:03)
[2020-07-08] MEDS ORDERED: HYDROMORPHONE HCL INJ/PF 2 MG/ML AMPULE ONE (07:03)
[2020-07-08] MEDS ORDERED: MIDAZOLAM 2 MG/2 ML INJ ONE (07:03)
[2020-07-08] MEDS ORDERED: FENTANYL CITRATE INJ/PF 100 MCG/2 ML AMPUL ONE (07:03)
[2020-07-08] MEDS ORDERED: ONDANSETRON HCL INJ/PF 4 MG/2 ML SDV ONE (07:03)
[2020-07-08] MEDS ORDERED: LIDOCAINE 2% INJ-PF (20 MG/ML) 10 ML AMPUL ONE (07:03)
[2020-07-08] MEDS ORDERED: PROPOFOL INJ 200 MG/20 ML VIAL IV ONE ×2 (07:04→07:40)
[2020-07-08] MEDS ORDERED: CEFAZOLIN INJ 1 GM VIAL ONE (07:28)
[2020-07-08] MEDS ORDERED: DEXMEDETOMIDINE INJ 80 MCG/20 ML VIAL IV ONE (07:40)
[2020-07-08] MEDS ORDERED: FENTANYL CITRATE INJ/PF 100 MCG/2 ML AMPUL IV PRN ×3 (08:09)
[2020-07-08] MEDS ORDERED: PROMETHAZINE HCL INJ 25 MG/1 ML VIAL IV PRN ×2 (08:09)
[2020-07-08] MEDS ORDERED: DIPHENHYDRAMINE HCL 50 MG/ML VIAL IV PRN (08:09)
[2020-07-08] MEDS ORDERED: OXYCODONE-ACETAMINOPHEN 5-325 MG TABLET PO PRN ×2 (08:09)
[2020-07-08] MEDS ORDERED: MORPHINE SULFATE 10 MG/ML INJ IV PRN (08:09)
[2020-07-08] MEDS ORDERED: MEPERIDINE HCL/PF INJ 25 MG/1 ML DISP.SYRIN IV PRN (08:09)
--- NOTE | 2020-07-08 08:59 | Operative Report ---
Nonrecallable Operative Report DATE OF SURGERY: 07/08/20 PREOPERATIVE DIAGNOSIS: generalized lymphadenopathy POSTOPERATIVE DIAGNOSIS: same OPERATION: right neck llymph node biopsy SURGEON: TITI GREEN DIE WELDER: PAULA CHA ANESTHESIA: GA TISSUE REMOVED OR ALTERED: lymphnode rt neck COMPLICATIONS: none ESTIMATED BLOOD LOSS: 5cc PROCEDURE: Patient was brought to the operating awake alert stable condition placed on the operative table in a supine position and given general anesthesia. The right neck was prepped and draped in usual sterile manner. A collar incision was made in the right lateral neck just anterior to the sternocleidomastoid muscle about 2 fingerbreadths above the clavicle. Dissection was then carried down through subcutaneous tissue with the knife platysma muscle was divided with Bovie cautery. Deep surgical fascia was then divided superficially with the Bovie cautery to identify the sternocleidomastoid muscle which was retracted laterally the internal jugular vein was then dissected out of the carotid sheath and number of fat a lymph nodes came into view. The largest one was about a centimeter in diameter was dissected free from the surrounding tissue hemostasis obtained with a small endoclips the lymph node was removed from the neck and sent to pathology. Hemostasis was intact the platysma muscle was then reapproximated with interrupted 3-0 Vicryl the skin was reapproximated intracuticular 4-0 Biosyn Steri-Strips completed the procedure estimated blood loss was less than 10 cc sponge needle counts correct x2 the patient was awakened and transferred recovery in stable condition no complications
[2020-07-08] MEDS ORDERED: ACETAMINOPHEN 1,000 MG/100 ML RTUPB IV ONE (09:06)
--- NOTE | 2020-07-08 09:35 | Progress Note ---
Provider Note Provider Note: [facility] ID Telephone Advice Consultation Chart reviewed, patient not seen. Patient is a 19-year-old man with history of asthma who was admitted to the hospital due to fever and cough. Per notes, patient has been feeling ill since April. He has had a chronic cough for which he has visited the ED twice and has completed azithromycin for bronchitis. Cough persists to the point that he has had rib fractures. No sputum production. He was admitted and started on broad spectrum antibiotics. He continues febrile despite antibiotics. Patient has leukopenia, elevated inflammation markers (ferritin, CRP), LDH, CK. Blood and urine cultures without pathogens. CT scan of abdomen and pelvis positive for splenomegaly and LAD. He had excisional biopsy done yesterday, pathology pending. COVID test negative. There is suspicion for lymphoma vs chronic infection. No clear history of traveling, sick contacts (TB exposure) or animal contacts (cat scratch, cattle, etc). ID consulted for recommendations. Allergies: Penicillins Allergy (Verified 06/18/20 18:47) Medications: Ibuprofen [Motrin 800 mg Tablet] 800 mg PO Q8 07/06/20 Vital Signs: Temp Pulse Resp BP Pulse Ox 98.2 F 86 17 121/78 99 07/08/20 07:55 07/08/20 04:00 07/08/20 04:00 07/08/20 04:00 07/08/20 04:00 Intake & Output 07/07/20 07/08/20 07/09/20 06:59 06:59 06:59 Intake Total 6196 3405 250 Output Total 2800 2425 Balance 3396 980 250 Weight 80.8 kg 81.5 kg Weight/Height Weight 81.5 kg Height 5 ft 7 in Laboratories: 07/07/20 05:42 07/08/20 05:18 MCV 77 fl (80-97) L 07/07/20 05:42 MCH 26.1 pg (27.0-33.4) L 07/07/20 05:42 MCHC 33.8 g/dL (32.0-36.0) 07/07/20 05:42 RDW 16.0 % (11.5-14.0) H 07/07/20 05:42 Seg Neutrophils % Not Reportable 07/06/20 05:49 Chloride 103 mmol/L (98-107) 07/08/20 05:18 Carbon Dioxide 29 mmol/L (22-30) 07/08/20 05:18 Anion Gap 7 (5-19) 07/08/20 05:18 Est GFR ( Amer) > 60 (>60) 07/08/20 05:18 Glucose 107 mg/dL (75-110) 07/08/20 05:18 Lactic Acid 1.1 mmol/L (0.7-2.1) 07/05/20 10:29 Calcium 8.6 mg/dL (8.4-10.2) 07/08/20 05:18 Phosphorus 2.6 mg/dL (2.5-4.5) 07/07/20 05:42 Magnesium 1.7 mg/dL (1.6-2.3) 07/08/20 05:18 Ferritin 614.00 ng/mL (17.9-464.0) H 07/05/20 10:29 Total Bilirubin 0.8 mg/dL (0.2-1.3) 07/08/20 05:18 AST 59 U/L (17-59) 07/08/20 05:18 Alkaline Phosphatase 89 U/L (38-126) 07/08/20 05:18 C-Reactive Protein 208.9 mg/L (<10.0) H 07/05/20 10:29 Total Protein 6.1 g/dL (6.3-8.2) L 07/08/20 05:18 Albumin 3.1 g/dL (3.5-5.0) L 07/08/20 05:18 Vitamin B12 517.0 pg/mL (239-931) 07/06/20 05:49 Folate 9.54 ng/mL (>2.76) 07/06/20 05:49 Urine Color YELLOW 07/07/20 05:30 Urine Appearance CLEAR 07/07/20 05:30 Urine pH 7.0 (5.0-9.0) 07/07/20 05:30 Ur Specific [place] 1.009 07/07/20 05:30 Urine Protein NEGATIVE mg/dL (NEGATIVE) 07/07/20 05:30 Urine Glucose (UA) NEGATIVE mg/dL (NEGATIVE) 07/07/20 05:30 Urine Ketones NEGATIVE mg/dL (NEGATIVE) 07/07/20 05:30 Urine Blood NEGATIVE (NEGATIVE) 07/07/20 05:30 Urine Nitrite NEGATIVE (NEGATIVE) 07/07/20 05:30 Ur Leukocyte Esterase NEGATIVE (NEGATIVE) 07/07/20 05:30 Urine WBC (Auto) 1 /HPF 07/07/20 05:30 Urine RBC (Auto) 0 /HPF 07/07/20 05:30 07/05/20 10:52 Throat Throat Culture - Final NORMAL YESENIA 07/07/20 06:50 Sputum Gram Stain - Final 07/07/20 06:50 Sputum Sputum Culture - Final 07/05/20 10:29 Clean Catch Midstream Urine Culture - Final NO GROWTH 2 DAYS 07/05/20 10:29 Blood Blood Culture (PCR) - Final Staphylococcus Species 07/05/20 07/05/20 10:29 10:29 Creatine Kinase 214 H Troponin I < 0.012 Radiology: Chest X-Ray 07/05/20 10:46 IMPRESSION: No acute cardiopulmonary process. Chest/Abdomen CTA 07/05/20 12:41 IMPRESSION: 1. Bulky supraclavicular, mediastinal, hilar and upper mesenteric adenopathy concerning for lymphoma. 2. Splenomegaly. 3. Mild bronchial wall thickening without bronchiectasis, mucous plugging or consolidation. 4. No pulmonary emboli. Abdomen/Pelvis CT 07/06/20 13:15 IMPRESSION: 1. Splenomegaly. There are multiple small periaortic lymph nodes. 2. Cannot exclude adenopathy in the posterior mediastinum on the 1st few images. Assessment and Recommendations: Patient evaluated for fever of unknown origin. These cases are usually very challenging as the differential include infection vs malignancy vs rheumatologic diseases. Most common infectious processes with similar presentation would be mononucleosis syndromes caused by EBV, CMV, toxoplasmosis, and other herpes viruses. They usually present fever, leukopenia, lymphadenopathy, transaminitis, splenomegaly. Trimble test was negative, can consider serologies for EBV, CMV Toxo IgM. HIV test was negative. Can consider syphilis test as this is a possibility if exposure. TB should be ruled out as well. Consider Quantiferon Gold. Cat scratch disease can present similarly, can consider Bartonella IgM/IgG if exposure. If traveling or contact with cattle, or unpasteurized products Brucella serology (IgM, IgG). Other differential include lymphoma which can present similarly. HLH he meets some criteria (fever, splenomegaly, cytopenias 2 lines, ferritin >500). Biopsy will definitely help us identify the cause of these findings. Can check triglycerides as they are part of diagnostic criteria for HLH. SLE and other rheumatologic disorders are also a possibility can check for this as well if LN biopsy is inconclusive. Please call back if questions or updates. Adriana Ron MD [facility] [place] [phone]
[2020-07-08 09:39] LABS: HEMATOCRIT 32.6 % (37.9-51.0); HEMOGLOBIN 10.6 g/dL (13.5-17.0); MEAN CORPUSCULAR HEMOGLOBIN 25.1 pg (27.0-33.4); MEAN CORPUSCULAR HGB CONC 32.5 g/dL (32.0-36.0); MEAN CORPUSCULAR VOLUME 77 fl (80-97); PLATELET COUNT 172 10^3/uL (150-450); RED BLOOD COUNT 4.22 10^6/uL (4.35-5.55); RED CELL DISTRIBUTION WIDTH 15.7 % (11.5-14.0); WHITE BLOOD COUNT 2.1 10^3/uL (4.0-10.5)
[2020-07-08] MEDS: ENOXAPARIN SODIUM INJ 80 MG/0.8 ML DISP.SYRIN SUBCUT SCH (10:28)
[2020-07-08] MEDS: GUAIFENESIN 600 MG TABLET.SA PO SCH ×2 (10:28→21:49)
[2020-07-08 11:51] LABS: ABSOLUTE LYMPHOCYTES# (MANUAL) 0.3 10^3/uL (0.5-4.7); ABSOLUTE MONOCYTES # (MANUAL) 0.3 10^3/uL (0.1-1.4); BAND NEUTROPHILS % (MANUAL) 1 % (3-5); BASOPHILS % (MANUAL) 0 % (0-2); EOSINOPHILS % (MANUAL) 0 % (0-6); LYMPHOCYTES % (MANUAL) 10 % (13-45); METAMYELOCYTES % (MANUAL) 1 % (0-1); MONOCYTES % (MANUAL) 16 % (3-13); SEGMENTED NEUTROPHILS % (MAN) 69 % (42-78); TOTAL CELLS COUNTED 100
[2020-07-08 11:52] LABS: ANISOCYTOSIS 1+; HYPOCHROMASIA 1+
[2020-07-08 11:53] LABS: PLATELET COMMENT ADEQUATE
[2020-07-08 11:54] LABS: PROMYELOCYTES % (MANUAL) 1 % (0)
[2020-07-08] MEDS ORDERED: TUBERCULIN,PURIF.PROT.DERIV. 5 TU/0.1 ML TEST 1 ML VIAL ID ONE (16:00)
--- NOTE | 2020-07-08 18:19 | PDOC PROGRESS REPORT ---
Subjective Date:: 07/08/20 Subjective:: Feels ok. Underwent excisional LN biopsy today. On further discussion patient a bout recent events in the past several months, he admits to his dog having lots of flees or ?ticks and that he had some bites on his legs from dog fleas back in February. However, he states that he never had a target lesion or any rash per say besides the bite solis and denies polyarthralgias, sore throat and others besides simply cough, fever and diaphoresis. Reason For Visit: FEVER UNKOWN ORIGIN,POSSIBLE COVID VIRUS INFECTION Physical Exam Vital Signs: Temp Pulse Resp BP Pulse Ox 97.7 F 57 L 16 115/67 96 07/08/20 11:43 07/08/20 14:00 07/08/20 11:43 07/08/20 11:43 07/08/20 11:43 Intake & Output 07/07/20 07/08/20 07/09/20 06:59 06:59 06:59 Intake Total 6196 3405 1300 Output Total 2800 2425 5 Balance 3396 980 1295 Weight 80.8 kg 81.5 kg General appearance: PRESENT: no acute distress, cooperative Head exam: PRESENT: normocephalic Eye exam: PRESENT: EOMI. ABSENT: periorbital swelling Mouth exam: PRESENT: moist Neck exam: PRESENT: lymphadenopathy. ABSENT: JVD Respiratory exam: PRESENT: clear to auscultation sanjiv, symmetrical, unlabored. ABSENT: tachypnea, wheezes Cardiovascular exam: PRESENT: RRR, +S1, +S2. ABSENT: diastolic murmur, systolic murmur, tachycardia GI/Abdominal exam: PRESENT: soft. ABSENT: rebound, rigid, tenderness Extremities exam: ABSENT: calf tenderness, pedal edema Musculoskeletal exam: PRESENT: ambulatory Neurological exam: PRESENT: alert, awake, oriented to person, oriented to place, oriented to time, oriented to situation Psychiatric exam: ABSENT: agitated, anxious Skin exam: PRESENT: intact. ABSENT: abrasion, jaundice, petechiae, rash, urticaria Results Laboratory Results: 07/08/20 05:18 07/08/20 05:18 07/08/20 07/08/20 05:18 05:18 WBC 2.1 L RBC 4.22 L Hgb 10.6 L Hct 32.6 L MCV 77 L MCH 25.1 L MCHC 32.5 RDW 15.7 H Plt Count 172 Seg Neutrophils % Not Reportable Sodium 139.4 Potassium 4.2 Chloride 103 Carbon Dioxide 29 Anion Gap 7 BUN 4 L Creatinine 0.71 Est GFR ( Amer) > 60 Glucose 107 Calcium 8.6 Magnesium 1.7 Total Bilirubin 0.8 AST 59 Alkaline Phosphatase 89 Total Protein 6.1 L Albumin 3.1 L 07/05/20 10:29 Blood Blood Culture (PCR) - Final Staphylococcus Species 07/05/20 10:29 Blood Blood Culture - Final Staphylococcus Hominis 07/05/20 10:52 Throat Throat Culture - Final NORMAL YESENIA 07/05/20 07/05/20 10:29 10:29 Creatine Kinase 214 H Troponin I < 0.012 Impressions: Chest X-Ray 07/05/20 10:46 IMPRESSION: No acute cardiopulmonary process. Chest/Abdomen CTA 07/05/20 12:41 IMPRESSION: 1. Bulky supraclavicular, mediastinal, hilar and upper mesenteric adenopathy concerning for lymphoma. 2. Splenomegaly. 3. Mild bronchial wall thickening without bronchiectasis, mucous plugging or consolidation. 4. No pulmonary emboli. Abdomen/Pelvis CT 07/06/20 13:15 IMPRESSION: 1. Splenomegaly. There are multiple small periaortic lymph nodes. 2. Cannot exclude adenopathy in the posterior mediastinum on the 1st few images. Assessment and Plan - Diagnosis (1) Fever of unknown origin Is this a current diagnosis for this admission?: Yes Plan: Associated with splenomegaly, multiple lymphadenopathies, leukopenia Etiology unknown. Blood cultures are negative besides contaminants. Receiving antibiotics without any significant improvement. Still spiked a high fever yesterday. Oncology and ID on board - Recommendations appreciated. Tylenol and NSAIDs as needed So far, COVID/HIV/Respiratory viral panel/Influenza/Monospot test are all negative. Checking EBV/CMV/Toxo serologies. PPD and Quantiferon checked. Underwent Excisional lymph node biopsy today. Discontinue IV antibiotics. We will put on p.o. doxycycline. Does not seem like patients is responding to antibiotics however as he still sporadically spiking high fevers. He is yet to have a fever today though. (2) Adenopathy Is this a current diagnosis for this admission?: Yes (3) SIRS (systemic inflammatory response syndrome) Is this a current diagnosis for this admission?: Yes Plan: Monitor inflammatory markers (4) Bronchitis Is this a current diagnosis for this admission?: Yes (5) Elevated d-dimer Is this a current diagnosis for this admission?: Yes (6) Splenomegaly Is this a current diagnosis for this admission?: Yes (7) Dehydration with hyponatremia Is this a current diagnosis for this admission?: Yes (8) Left rib fracture Qualifiers: Encounter type: initial encounter Rib fracture type: multiple ribs Fracture type: closed Qualified Code(s): S22.42XA - Multiple fractures of ribs, left side, initial encounter for closed fracture Is this a current diagnosis for this admission?: Yes - Time Time Spent with patient: 15-24 minutes Anticipated Discharge Disposition: Home, Self Care Anticipated Discharge Timeframe: within 48 hours
[2020-07-08] MEDS: ACETAMINOPHEN 325 MG TABLET PO PRN (19:26)
[2020-07-08] MEDS: MELATONIN 5 MG TABLET PO SCH (21:49)
[2020-07-08] MEDS: DOXYCYCLINE HYCLATE 100 MG TABLET PO SCH (21:49)
[2020-07-09] MEDS: ACETAMINOPHEN 325 MG TABLET PO PRN ×2 (04:17→10:09)
[2020-07-09] MEDS: GUAIFENESIN SYRP 200 MG/10 ML UDC PO PRN ×2 (05:08→11:30)
[2020-07-09] MEDS: PANTOPRAZOLE SODIUM 20 MG TABLET.DR PO SCH (05:08)
[2020-07-09 06:07] LABS: HEMATOCRIT 28.1 % (37.9-51.0); HEMOGLOBIN 9.6 g/dL (13.5-17.0); MEAN CORPUSCULAR HGB CONC 34.2 g/dL (32.0-36.0); MEAN CORPUSCULAR VOLUME 76 fl (80-97); PLATELET COUNT 175 10^3/uL (150-450); RED BLOOD COUNT 3.69 10^6/uL (4.35-5.55); RED CELL DISTRIBUTION WIDTH 15.9 % (11.5-14.0)
[2020-07-09 07:02] LABS: C-REACTIVE PROTEIN 136.6 mg/L (<10.0)
--- NOTE | 2020-07-09 08:42 | PDOC PROGRESS REPORT ---
Subjective Date:: 07/09/20 Subjective:: Received final pathology from lymph node biopsy, unfortunately it is just thyroid tissue, not diagnostic. He is doing much better. Having a little bit of cough, TB skin test was placed, final result will be back tomorrow. Reason For Visit: FEVER UNKOWN ORIGIN,POSSIBLE COVID VIRUS INFECTION Physical Exam Vital Signs: Temp Pulse Resp BP Pulse Ox 103 F H 139 H 20 121/64 98 07/09/20 05:14 07/09/20 04:00 07/09/20 04:00 07/09/20 04:00 07/09/20 04:00 Intake & Output 07/08/20 07/09/20 07/10/20 06:59 06:59 06:59 Intake Total 3405 2820 Output Total 2425 2155 Balance 980 665 Weight 81.5 kg 81.6 kg General appearance: PRESENT: no acute distress, well-developed, well-nourished Head exam: PRESENT: atraumatic, normocephalic Eye exam: PRESENT: conjunctiva pink, EOMI, PERRLA. ABSENT: scleral icterus Ear exam: PRESENT: normal external ear exam Mouth exam: PRESENT: moist, tongue midline Neck exam: ABSENT: carotid bruit, JVD, lymphadenopathy, thyromegaly Respiratory exam: PRESENT: clear to auscultation sanjiv. ABSENT: rales, rhonchi, wheezes Cardiovascular exam: PRESENT: RRR. ABSENT: diastolic murmur, rubs, systolic murmur Pulses: PRESENT: normal dorsalis pedis pul Vascular exam: PRESENT: normal capillary refill GI/Abdominal exam: PRESENT: normal bowel sounds, soft. ABSENT: distended, guarding, mass, organolmegaly, rebound, tenderness Rectal exam: PRESENT: deferred Extremities exam: PRESENT: full ROM. ABSENT: calf tenderness, clubbing, pedal edema Neurological exam: PRESENT: alert, awake, oriented to person, oriented to place, oriented to time, oriented to situation, CN II-XII grossly intact. ABSENT: motor sensory deficit Psychiatric exam: PRESENT: appropriate affect, normal mood. ABSENT: homicidal ideation, suicidal ideation Skin exam: PRESENT: dry, intact, warm. ABSENT: cyanosis, rash Results Laboratory Results: 07/09/20 05:32 07/08/20 05:18 07/08/20 07/09/20 07/09/20 05:18 05:32 05:32 WBC 2.1 L 3.0 L RBC 4.22 L 3.69 L Hgb 10.6 L 9.6 L Hct 32.6 L 28.1 L MCV 77 L 76 L MCH 25.1 L 26.0 L MCHC 32.5 34.2 RDW 15.7 H 15.9 H Plt Count 172 175 Seg Neutrophils % Not Reportable Ferritin 800.00 H C-Reactive Protein 136.6 H Triglycerides 138 07/05/20 10:29 Blood Blood Culture (PCR) - Final Staphylococcus Species 07/05/20 10:29 Blood Blood Culture - Final Staphylococcus Hominis 07/05/20 07/05/20 10:29 10:29 Creatine Kinase 214 H Troponin I < 0.012 Impressions: Chest X-Ray 07/05/20 10:46 IMPRESSION: No acute cardiopulmonary process. Chest/Abdomen CTA 07/05/20 12:41 IMPRESSION: 1. Bulky supraclavicular, mediastinal, hilar and upper mesenteric adenopathy concerning for lymphoma. 2. Splenomegaly. 3. Mild bronchial wall thickening without bronchiectasis, mucous plugging or consolidation. 4. No pulmonary emboli. Abdomen/Pelvis CT 07/06/20 13:15 IMPRESSION: 1. Splenomegaly. There are multiple small periaortic lymph nodes. 2. Cannot exclude adenopathy in the posterior mediastinum on the 1st few image s. Assessment & Plan - Diagnosis (1) Adenopathy Is this a current diagnosis for this admission?: Yes Plan: I do believe still this is most likely going to be a lymphoma type process, most likely would be Hodgkin's lymphoma in his age group. This is a very difficult diagnosis sometimes because the Xu-Peter cells are difficult to capture. I discussed his case with Dr. Lay who notes that there is really nothing in the neck or axilla that was more prominent than what he tried to go after. Therefore, we really need to go after the mediastinal adenopathy, and he would need thoracic surgery to do this. Probably mediastinoscopy. To that extent he would need a consultation in [place] at [facility]. This could potentially be done as an outpatient as long as any infectious diseases have been fully ruled out. - Time Time Spent with patient: 35 or more minutes
[2020-07-09] MEDS: DOXYCYCLINE HYCLATE 100 MG TABLET PO SCH (10:10)
[2020-07-09] MEDS: GUAIFENESIN 600 MG TABLET.SA PO SCH ×2 (10:10→22:31)
[2020-07-09] MEDS: ENOXAPARIN SODIUM INJ 80 MG/0.8 ML DISP.SYRIN SUBCUT SCH (10:10)
[2020-07-09 11:29] LABS: PATH REVIEW PATHOLOGIST REVIEWED
--- NOTE | 2020-07-09 11:41 | PDOC PROGRESS REPORT ---
Subjective Date:: 07/09/20 Subjective:: still with fever and cough hungry Reason For Visit: FEVER UNKOWN ORIGIN,POSSIBLE COVID VIRUS INFECTION Physical Exam Vital Signs: Temp Pulse Resp BP Pulse Ox 103 F H 139 H 20 121/64 98 07/09/20 05:14 07/09/20 04:00 07/09/20 04:00 07/09/20 04:00 07/09/20 04:00 Intake & Output 07/08/20 07/09/20 07/10/20 06:59 06:59 06:59 Intake Total 3405 2820 Output Total 2425 2155 Balance 980 665 Weight 81.5 kg 81.6 kg 81.6 kg General appearance: PRESENT: mild distress Head exam: PRESENT: normocephalic Eye exam: PRESENT: EOMI, PERRLA, other - rt neck incision clean dry Mouth exam: PRESENT: moist Neck exam: PRESENT: full ROM Respiratory exam: PRESENT: clear to auscultation sanjiv Cardiovascular exam: PRESENT: RRR, tachycardia Pulses: PRESENT: normal radial pulses, normal femoral pulses Vascular exam: PRESENT: normal capillary refill Breast: PRESENT: Normal GI/Abdominal exam: PRESENT: soft Rectal exam: PRESENT: deferred Extremities exam: PRESENT: full ROM Neurological exam: PRESENT: alert, awake, oriented to person, oriented to place Psychiatric exam: PRESENT: appropriate affect Skin exam: PRESENT: dry Results Laboratory Results: 07/09/20 05:32 07/08/20 05:18 07/08/20 07/09/20 07/09/20 05:18 05:32 05:32 WBC 2.1 L 3.0 L RBC 4.22 L 3.69 L Hgb 10.6 L 9.6 L Hct 32.6 L 28.1 L MCV 77 L 76 L MCH 25.1 L 26.0 L MCHC 32.5 34.2 RDW 15.7 H 15.9 H Plt Count 172 175 Ferritin 800.00 H C-Reactive Protein 136.6 H Triglycerides 138 07/05/20 10:29 Blood Blood Culture (PCR) - Final Staphylococcus Species 07/05/20 10:29 Blood Blood Culture - Final Staphylococcus Hominis 07/05/20 07/05/20 10:29 10:29 Creatine Kinase 214 H Troponin I < 0.012 Impressions: Chest X-Ray 07/05/20 10:46 IMPRESSION: No acute cardiopulmonary process. Chest/Abdomen CTA 07/05/20 12:41 IMPRESSION: 1. Bulky supraclavicular, mediastinal, hilar and upper mesenteric adenopathy concerning for lymphoma. 2. Splenomegaly. 3. Mild bronchial wall thickening without bronchiectasis, mucous plugging or consolidation. 4. No pulmonary emboli. Abdomen/Pelvis CT 07/06/20 13:15 IMPRESSION: 1. Splenomegaly. There are multiple small periaortic lymph nodes. 2. Cannot exclude adenopathy in the posterior mediastinum on the 1st few images. Assessment & Plan - Time Anticipated Discharge Disposition: Home, Self Care Anticipated Discharge Timeframe: unk - Plan Summary Plan Summary: case discussed iw Dr grider and onwei path shows thyroid tissue, no nodes there is no other lymphadenopathy palpable in neck or axillia or groins suggest thoracic surgery consult for poss mediastinal bx surgery will sign off at this time please reconsult if necessary.
[2020-07-09] MEDS: IBUPROFEN 600 MG TABLET PO PRN (16:22)
[2020-07-09] MEDS: RINGERS SOLUTION,LACTATED 1,000 ML IV PRN (16:22)
--- NOTE | 2020-07-09 18:38 | PDOC PROGRESS REPORT ---
Subjective Date:: 07/09/20 Subjective:: having fevers still Reason For Visit: FEVER UNKOWN ORIGIN,POSSIBLE COVID VIRUS INFECTION Physical Exam Vital Signs: Temp Pulse Resp BP Pulse Ox 98.2 F 133 H 16 115/42 L 93 07/09/20 17:20 07/09/20 11:20 07/09/20 11:20 07/09/20 11:20 07/09/20 11:20 Intake & Output 07/08/20 07/09/20 07/10/20 06:59 06:59 06:59 Intake Total 3405 3820 Output Total 2425 2155 Balance 980 1665 Weight 81.5 kg 81.6 kg 81.6 kg General appearance: PRESENT: no acute distress, cooperative Neck exam: PRESENT: lymphadenopathy. ABSENT: JVD Respiratory exam: PRESENT: clear to auscultation sanjiv, unlabored. ABSENT: tachypnea, wheezes Cardiovascular exam: PRESENT: RRR, +S1, +S2. ABSENT: tachycardia GI/Abdominal exam: PRESENT: soft. ABSENT: rebound, rigid, tenderness Neurological exam: PRESENT: alert, awake Results Laboratory Results: 07/09/20 05:32 07/08/20 05:18 07/09/20 07/09/20 05:32 05:32 WBC 3.0 L RBC 3.69 L Hgb 9.6 L Hct 28.1 L MCV 76 L MCH 26.0 L MCHC 34.2 RDW 15.9 H Plt Count 175 Ferritin 800.00 H C-Reactive Protein 136.6 H Triglycerides 138 07/05/20 07/05/20 10:29 10:29 Creatine Kinase 214 H Troponin I < 0.012 Impressions: Chest X-Ray 07/05/20 10:46 IMPRESSION: No acute cardiopulmonary process. Chest/Abdomen CTA 07/05/20 12:41 IMPRESSION: 1. Bulky supraclavicular, mediastinal, hilar and upper mesenteric adenopathy concerning for lymphoma. 2. Splenomegaly. 3. Mild bronchial wall thickening without bronchiectasis, mucous plugging or consolidation. 4. No pulmonary emboli. Abdomen/Pelvis CT 07/06/20 13:15 IMPRESSION: 1. Splenomegaly. There are multiple small periaortic lymph nodes. 2. Cannot exclude adenopathy in the posterior mediastinum on the 1st few images . Assessment and Plan - Diagnosis (1) Fever of unknown origin Is this a current diagnosis for this admission?: Yes Plan: Associated with splenomegaly, multiple lymphadenopathies, leukopenia Etiology unknown. Blood cultures are negative besides contaminants. Receiving antibiotics without any significant improvement. Still spiked a high fever yesterday. Oncology and ID on board - Recommendations appreciated. Tylenol and NSAIDs as needed So far, COVID/HIV/Respiratory viral panel/Influenza/Monospot test are all negative. Checking EBV/CMV/Toxo serologies. PPD and Quantiferon checked. Excisional lymph node biopsy today showed thyroid tissue Disocntinue antibiotics as this is not bacterial and likely not infectious. (2) Adenopathy Is this a current diagnosis for this admission?: Yes Plan: Multiple lymphadenopathy involving his supraclavicular, hilar, mediastinal, and upper mesenteric lymph nodes. CT abdomen/pelvis today also shows involvement of his retroperitoneal paraortic nodes. Associated with splenomegaly and fevers. Leukopenic today. Continue to monitor CBC. HIV negative. Iosco test is negative. Covid and influenza are negative. Respiratory viral panel negative. Oncology consulted due to concerns for lymphoma/leukemia. Underwent supraclavicular lymph node excisional biopsy 07/08/2020. Pathology result came back showing the thyroid tissue. We will pursue mediastinoscopy at [facility]. Dr. Carlos hill set patient up to see the cardiothoracic surgeon Emmett Camargo on July 21 at 4:15 PM (3) SIRS (systemic inflammatory response syndrome) Is this a current diagnosis for this admission?: Yes (4) Bronchitis Is this a current diagnosis for this admission?: Yes (5) Elevated d-dimer Is this a current diagnosis for this admission?: Yes (6) Splenomegaly Is this a current diagnosis for this admission?: Yes (7) Dehydration with hyponatremia Is this a current diagnosis for this admission?: Yes (8) Left rib fracture Qualifiers: Encounter type: initial encounter Rib fracture type: multiple ribs Fracture type: closed Qualified Code(s): S22.42XA - Multiple fractures of ribs, left side, initial encounter for closed fracture Is this a current diagnosis for this admission?: Yes - Time Time Spent with patient: Less than 15 minutes Anticipated Discharge Disposition: Home, Self Care Anticipated Discharge Timeframe: within 24 hours
[2020-07-09] MEDS: MELATONIN 5 MG TABLET PO SCH (22:31)
[2020-07-10] MEDS: IBUPROFEN 600 MG TABLET PO PRN (01:35)
[2020-07-10] MEDS: PANTOPRAZOLE SODIUM 20 MG TABLET.DR PO SCH (05:11)
[2020-07-10] MEDS: GUAIFENESIN 600 MG TABLET.SA PO SCH (09:25)
[2020-07-10] MEDS: ENOXAPARIN SODIUM INJ 80 MG/0.8 ML DISP.SYRIN SUBCUT SCH (09:25)
--- NOTE | 2020-07-10 11:05 | PDOC PROGRESS REPORT ---
Subjective Date:: 07/10/20 Subjective:: DC home plan today, patient has thoracic surgery evaluation in [place] on 07/21/2020, Dr. Everardo Camargo. Plan for ultimate mediastinoscopy and biopsy. Reason For Visit: FEVER UNKOWN ORIGIN,POSSIBLE COVID VIRUS INFECTION Physical Exam Vital Signs: Temp Pulse Resp BP Pulse Ox 97.4 F 77 19 114/67 96 07/10/20 06:44 07/10/20 08:08 07/10/20 01:26 07/10/20 08:08 07/10/20 08:08 Intake & Output 07/09/20 07/10/20 07/11/20 06:59 06:59 06:59 Intake Total 3820 900 150 Output Total 2155 2450 600 Balance 1665 -1550 -450 Weight 81.6 kg 85.6 kg General appearance: PRESENT: no acute distress, well-developed, well-nourished Head exam: PRESENT: atraumatic, normocephalic Eye exam: PRESENT: conjunctiva pink, EOMI, PERRLA. ABSENT: scleral icterus Ear exam: PRESENT: normal external ear exam Mouth exam: PRESENT: moist, tongue midline Neck exam: ABSENT: carotid bruit, JVD, lymphadenopathy, thyromegaly Respiratory exam: PRESENT: clear to auscultation sanjiv. ABSENT: rales, rhonchi, wheezes Cardiovascular exam: PRESENT: RRR. ABSENT: diastolic murmur, rubs, systolic murmur Pulses: PRESENT: normal dorsalis pedis pul Vascular exam: PRESENT: normal capillary refill GI/Abdominal exam: PRESENT: normal bowel sounds, soft. ABSENT: distended, guarding, mass, organolmegaly, rebound, tenderness Rectal exam: PRESENT: deferred Extremities exam: PRESENT: full ROM. ABSENT: calf tenderness, clubbing, pedal edema Neurological exam: PRESENT: alert, awake, oriented to person, oriented to place, oriented to time, oriented to situation, CN II-XII grossly intact. ABSENT: motor sensory deficit Psychiatric exam: PRESENT: appropriate affect, normal mood. ABSENT: homicidal ideation, suicidal ideation Skin exam: PRESENT: dry, intact, warm. ABSENT: cyanosis, rash Results Laboratory Results: 07/09/20 05:32 07/08/20 05:18 07/05/20 07/05/20 10:29 10:29 Creatine Kinase 214 H Troponin I < 0.012 Impressions: Chest X-Ray 07/05/20 10:46 IMPRESSION: No acute cardiopulmonary process. Chest/Abdomen CTA 07/05/20 12:41 IMPRESSION: 1. Bulky supraclavicular, mediastinal, hilar and upper mesenteric adenopathy concerning for lymphoma. 2. Splenomegaly. 3. Mild bronchial wall thickening without bronchiectasis, mucous plugging or consolidation. 4. No pulmonary emboli. Abdomen/Pelvis CT 07/06/20 13:15 IMPRESSION: 1. Splenomegaly. There are multiple small periaortic lymph nodes. 2. Cannot exclude adenopathy in the posterior mediastinum on the 1st few images. Assessment & Plan - Diagnosis (1) Adenopathy Is this a current diagnosis for this admission?: Yes Plan: Still very concerning for a lymphoma process, need more tissue. Plan for that as an outpatient. - Time Time Spent with patient: 15-24 minutes
--- NOTE | 2020-07-10 11:34 | PDOC DISCHARGE SUMMARY ---
Impression - Admit/DC Date/PCP Admission Date/Primary Care Provider: 07/05/20 16:08 Discharge Date: 07/10/20 - Discharge Diagnosis (1) Fever of unknown origin Is this a current diagnosis for this admission?: Yes (2) Adenopathy Is this a current diagnosis for this admission?: Yes (3) SIRS (systemic inflammatory response syndrome) Is this a current diagnosis for this admission?: Yes (4) Bronchitis Is this a current diagnosis for this admission?: Yes (5) Elevated d-dimer Is this a current diagnosis for this admission?: Yes (6) Splenomegaly Is this a current diagnosis for this admission?: Yes (7) Dehydration with hyponatremia Is this a current diagnosis for this admission?: Yes (8) Left rib fracture Is this a current diagnosis for this admission?: Yes (9) Leukopenia Is this a current diagnosis for this admission?: Yes (10) Microcytic anemia Is this a current diagnosis for this admission?: Yes - Additional Information Resuscitation Status: Full Code Discharge Diet: Regular Discharge Activity: Activity As Tolerated, Slowly Increase Activity Referrals: MELODY CAMARGO MD [NO LOCAL MD] - 07/21/20 4:15 pm Prescriptions: Pantoprazole Sodium [Protonix [address] Tablet] 20 mg PO Q6AM #30 tablet. Home Medications: Ibuprofen [Motrin 800 mg Tablet] 800 mg PO Q8 07/06/20 Acetaminophen [Tylenol 325 mg Tablet] 975 mg PO Q6HP PRN tablet 07/10/20 Pantoprazole Sodium [Protonix [address] Tablet] 20 mg PO Q6AM #30 tablet. 07/10/20 History of Present Illiness History of Present Illness: According to admitting provider: ROBI LAU is a 19 year old male who was evaluated in the emergency department on June 04 and June 18. On the he was discharged home with a presumptive diagnosis of viral illness. He reports that on the he was sent home with a presumptive diagnosis of bronchitis. On both occasions he tested Covid negative. He states that he had been getting worse. He states that he has 2 broken ribs from coughing. He has had very poor appetite over the last day or 2. Temperature was 105 on admission. He has been diaphoretic. He feels achy all over. Chest x-ray shows no focal infiltrate but CT scan shows diffuse adenopathy in the subclavicular, mediastinal and mesenteric areas. He also has splenomegaly. There is concern for lymphoma. He is being tested for Covid again. He does work in a restaurant and it is hard to know the degree of personal protection taken by the patient as well as other staff members. Hospital Course Hospital Course: Patient was admitted to the hospital for work-up of fever which has been going on since Halloween night AKA 2 months almost. He had also been experiencing some cough. He had completed outpatient treatment with antibiotics including a course of azithromycin without any improvement. Blood work revealed leukopenia and anemia. Chest CT revealed bronchial thickening which was mild suggestive of mild bronchitis. The CT also picked up on multiple lymphadenopathies with signi ficant lymph node enlargements involving the supra clavicular, hilar, mediastinal, upper mesenteric nodes. His hilar lymph node is also very bulky. Patient was initiated on empiric antibiotics. Covid test, flu test, Monospot test, RSV, full respiratory viral panel, HIV, sputum cultures, PPD, urinalysis, blood cultures have all been negative so far. Patient continued to spike high fevers of 103F a couple of times a day this is despite even being on broad- spectrum antibiotic treatment with vancomycin and meropenem. As noted he had completed azithromycin outpatient which should have taking care of atypicals but spiked fevers even on doxycycline inpatient for a few days. Lyme disease/CMV/EBV/QuantiFERON gold titers are still pending at time of discharge. However, it is very unlikely that patient's fever or from an infectious etiology and as such antibiotics have been discontinued. ID was consulted. Oncology was also consulted given multiple lymphadenopathies, fevers, splenomegaly and elevated ferritin raising very high concern for possible lymphoma or another malignancy. Oncology recommended excisional biopsy. Surgery performed an excisional biopsy of what had appeared to be the supraclavicular lymph node on the right but the pathology report turns out to show thyroid tissue. Thyroid function test was unremarkable. I have discussed with surgery and oncology and Dr. Zamorano has set patient up with CT surgeon Dr. Camargo at [facility] on 07/21 to perform a mediastinoscopy with biopsy of his hilar lymph node to get sufficient tissue sample for diagnosis. I discussed with patient about transferring him to [facility] from [facility] so that he can get the biopsy sooner given my concern for his episodes of tachycardia and high fevers. However he declined transfer and would like to wait to the appointment on 07/21 because he would like to go home and spend time with his family and kids. I have given him information for the appointment and we provide him with CD for his imaging. I have placed him on a PPI as he will be likely taking quite a bit of NSAIDs in addition to Tylenol to control his fevers at home. Have counseled him on max dose of Tylenol and taking NSAIDs on a full stomach. Physical Exam Vital Signs: Temp Pulse Resp BP Pulse Ox 97.4 F 77 19 114/67 96 07/10/20 06:44 07/10/20 08:08 07/10/20 01:26 07/10/20 08:08 07/10/20 08:08 Intake & Output 07/09/20 07/10/20 07/11/20 06:59 06:59 06:59 Intake Total 3820 900 150 Output Total 2155 2450 600 Balance 1665 -1550 -450 Weight 81.6 kg 85.6 kg General appearance: PRESENT: no acute distress, cooperative Neck exam: ABSENT: JVD Respiratory exam: PRESENT: clear to auscultation sanjiv, unlabored. ABSENT: wheezes Cardiovascular exam: PRESENT: +S1, +S2. ABSENT: irregular rhythm, tachycardia GI/Abdominal exam: PRESENT: soft. ABSENT: rebound, rigid, tenderness Neurological exam: PRESENT: alert, awake, oriented to person, oriented to place, oriented to time Results Laboratory Results: WBC 3.0 10^3/uL (4.0-10.5) L 07/09/20 05:32 RBC 3.69 10^6/uL (4.35-5.55) L 07/09/20 05:32 Hgb 9.6 g/dL (13.5-17.0) L 07/09/20 05:32 Hct 28.1 % (37.9-51.0) L 07/09/20 05:32 MCV 76 fl (80-97) L 07/09/20 05:32 MCH 26.0 pg (27.0-33.4) L 07/09/20 05:32 MCHC 34.2 g/dL (32.0-36.0) 07/09/20 05:32 RDW 15.9 % (11.5-14.0) H 07/09/20 05:32 Plt Count 175 10^3/uL (150-450) 07/09/20 05:32 Lymph % (Auto) Not Reportable 07/08/20 05:18 [place] % (Auto) Not Reportable 07/08/20 05:18 Eos % (Auto) Not Reportable 07/08/20 05:18 Baso % (Auto) Not Reportable 07/08/20 05:18 Absolute Neuts (auto) Not Reportable 07/08/20 05:18 Absolute Lymphs (auto) Not Reportable 07/08/20 05:18 Absolute Monos (auto) Not Reportable 07/08/20 05:18 Absolute Eos (auto) Not Reportable 07/08/20 05:18 Absolute Basos (auto) Not Reportable 07/08/20 05:18 Total Counted 100 07/08/20 05:18 Seg Neutrophils % Not Reportable 07/08/20 05:18 Seg Neuts % (Manual) 69 % (42-78) 07/08/20 05:18 Band Neutrophils % 1 % (3-5) L 07/08/20 05:18 Lymphocytes % (Manual) 10 % (13-45) L 07/08/20 05:18 Atypical Lymphs % 2 % (0) 07/08/20 05:18 Monocytes % (Manual) 16 % (3-13) H 07/08/20 05:18 Eosinophils % (Manual) 0 % (0-6) 07/08/20 05:18 Basophils % (Manual) 0 % (0-2) 07/08/20 05:18 Metamyelocytes % 1 % (0-1) 07/08/20 05:18 Promyelocytes % 1 % (0) H 07/08/20 05:18 Abs Neuts (Manual) 1.5 10^3/uL (1.7-8.2) L 07/08/20 05:18 Abs Lymphs (Manual) 0.3 10^3/uL (0.5-4.7) L 07/08/20 05:18 Abs Monocytes (Manual) 0.3 10^3/uL (0.1-1.4) 07/08/20 05:18 Absolute Eos (Manual) 0.0 10^3/uL (0.0-0.6) 07/08/20 05:18 Abs Basophils (Manual) 0.0 10^3/uL (0.0-0.2) 07/08/20 05:18 Clumped Platelets PRESENT 07/05/20 10:29 Platelet Comment ADEQUATE 07/08/20 05:18 Hypochromasia 1+ 07/08/20 05:18 Anisocytosis 1+ 07/08/20 05:18 Microcytosis SLIGHT 07/08/20 05:18 PT 16.5 SEC (11.4-15.4) H 07/05/20 10:29 INR 1.31 07/05/20 10:29 D-Dimer 3.61 ug/mL (0.00-0.50) H 07/05/20 10:29 Sodium 139.4 mmol/L (137-145) 07/08/20 05:18 Potassium 4.2 mmol/L (3.6-5.0) 07/08/20 05:18 Chloride 103 mmol/L (98-107) 07/08/20 05:18 Carbon Dioxide 29 mmol/L (22-30) 07/08/20 05:18 Anion Gap 7 (5-19) 07/08/20 05:18 BUN 4 mg/dL (7-20) L 07/08/20 05:18 Creatinine 0.71 mg/dL (0.52-1.25) 07/08/20 05:18 Est GFR ( Amer) > 60 (>60) 07/08/20 05:18 Est GFR (MDRD) Non-Af > 60 (>60) 07/08/20 05:18 Glucose 107 mg/dL (75-110) 07/08/20 05:18 Lactic Acid 1.1 mmol/L (0.7-2.1) 07/05/20 10:29 Calcium 8.6 mg/dL (8.4-10.2) 07/08/20 05:18 Phosphorus 2.6 mg/dL (2.5-4.5) 07/07/20 05:42 Magnesium 1.7 mg/dL (1.6-2.3) 07/08/20 05:18 Ferritin 800.00 ng/mL (17.9-464.0) H 07/09/20 05:32 Total Bilirubin 0.8 mg/dL (0.2-1.3) 07/08/20 05:18 Direct Bilirubin 0.3 mg/dL (0.0-0.4) 07/08/20 05:18 Neonat Total Bilirubin Not Reportable 07/08/20 05:18 Neonat Direct Bilirubin Not Reportable 07/08/20 05:18 Neonat Indirect Bili Not Reportable 07/08/20 05:18 AST 59 U/L (17-59) 07/08/20 05:18 ALT 34 U/L (<50) 07/08/20 05:18 Alkaline Phosphatase 89 U/L (38-126) 07/08/20 05:18 Lactate Dehydrogenase 473 U/L (120-246) H 07/09/20 05:32 Creatine Kinase 214 U/L (55-170) H 07/05/20 10:29 Troponin I < 0.012 ng/mL 07/05/20 10:29 C-Reactive Protein 136.6 mg/L (<10.0) H 07/09/20 05:32 Total Protein 6.1 g/dL (6.3-8.2) L 07/08/20 05:18 Albumin 3.1 g/dL (3.5-5.0) L 07/08/20 05:18 Triglycerides 138 mg/dL (<150) 07/09/20 05:32 Vitamin B12 517.0 pg/mL (239-931) 07/06/20 05:49 Vitamin D 25-Hydroxy 15.9 ng/mL (14.7-68.3) 07/09/20 05:32 Folate 9.54 ng/mL (>2.76) 07/06/20 05:49 Urine Color YELLOW 07/07/20 05:30 Urine Appearance CLEAR 07/07/20 05:30 Urine pH 7.0 (5.0-9.0) 07/07/20 05:30 Ur Specific [place] 1.009 07/07/20 05:30 Urine Protein NEGATIVE mg/dL (NEGATIVE) 07/07/20 05:30 Urine Glucose (UA) NEGATIVE mg/dL (NEGATIVE) 07/07/20 05:30 Urine Ketones NEGATIVE mg/dL (NEGATIVE) 07/07/20 05:30 Urine Blood NEGATIVE (NEGATIVE) 07/07/20 05:30 Urine Nitrite NEGATIVE (NEGATIVE) 07/07/20 05:30 Urine Bilirubin NEGATIVE (NEGATIVE) 07/07/20 05:30 Urine Urobilinogen 4.0 mg/dL (<2.0) H 07/07/20 05:30 Ur Leukocyte Esterase NEGATIVE (NEGATIVE) 07/07/20 05:30 Urine WBC (Auto) 1 /HPF 07/07/20 05:30 Urine RBC (Auto) 0 /HPF 07/07/20 05:30 Urine Mucus (Auto) RARE /LPF 07/07/20 05:30 Urine Ascorbic Acid NEGATIVE (NEGATIVE) 07/07/20 05:30 Aubrey Human Metapneumo PCR NOT DETECTED (NOT DETECT) 07/05/20 10:52 Time Trough Drawn 1140 07/08/20 11:40 Vancomycin Trough 13.0 ug/mL (5.0-20.0) 07/08/20 11:40 Adenovirus (PCR) NOT DETECTED (NOT DETECT) 07/05/20 10:52 B. pertussis DNA (PCR) NOT DETECTED (NOT DETECT) 07/05/20 10:52 B.parapertussis DNA PCR NOT DETECTED (NOT DETECT) 07/05/20 10:52 C. pneumoniae DNA (PCR) NOT DETECTED (NOT DETECT) 07/05/20 10:52 Coronavirus OC43 (PCR) NOT DETECTED (NOT DETECT) 07/05/20 10:52 Coronavirus HKU1 (PCR) NOT DETECTED (NOT DETECT) 07/05/20 10:52 Coronavirus 229E (PCR) NOT DETECTED (NOT DETECT) 07/05/20 10:52 COVID-19 Source Cancelled 07/05/20 10:52 COVID-19 (JOO) Cancelled 07/05/20 10:52 Coronavirus NL63 (PCR) NOT DETECTED (NOT DETECT) 07/05/20 10:52 Monotest NEGATIVE (NEGATIVE) 07/05/20 10:29 HIV 1&2 Antibody NEGATIVE (NEGATIVE) 07/06/20 05:49 Influenza A (Rapid) NEGATIVE (NEGATIVE) 07/05/20 10:52 Influenza A (RT-PCR) NEGATIVE (NEGATIVE) 07/05/20 10:52 Influenza A (H1) PCR NOT DETECTED (NOT DETECT) 07/05/20 10:52 Influ A (H1N1/09) PCR NOT DETECTED (NOT DETECT) 07/05/20 10:52 Influenza A (H3) PCR NOT DETECTED (NOT DETECT) 07/05/20 10:52 Influenza Type A (PCR) NOT DETECTED (NOT DETECT) 07/05/20 10:52 Influenza B (Rapid) NEGATIVE (NEGATIVE) 07/05/20 10:52 Influenza B (RT-PCR) NEGATIVE (NEGATIVE) 07/05/20 10:52 Influenza Type B (PCR) NOT DETECTED (NOT DETECT) 07/05/20 10:52 M. pneumoniae (PCR) NOT DETECTED (NOT DETECT) 07/05/20 10:52 Parainfluenza 1 (PCR) NOT DETECTED (NOT DETECT) 07/05/20 10:52 Parainfluenza 2 (PCR) NOT DETECTED (NOT DETECT) 07/05/20 10:52 Parainfluenza 3 (PCR) NOT DETECTED (NOT DETECT) 07/05/20 10:52 Parainfluenza 4 (PCR) NOT DETECTED (NOT DETECT) 07/05/20 10:52 RSV (RT-PCR) NEGATIVE (NEGATIVE) 07/05/20 10:52 RSV (PCR) NOT DETECTED (NOT DETECT) 07/05/20 10:52 Entero/Rhino (PCR) NOT DETECTED (NOT DETECT) 07/05/20 10:52 SARS-CoV-2 (PCR) NOT DETECTED (NOT DETECT) 07/05/20 10:52 SARS-CoV-2 Rap RNA(RT-PCR) NEGATIVE (NEGATIVE) 07/05/20 10:52 Group A Strep Rapid NEGATIVE (NEGATIVE) 07/05/20 10:52 Slides for Path Review PATHOLOGIST REVIEWED 07/08/20 05:18 07/05/20 10:29 Troponin I < 0.012 Impressions: Chest X-Ray 07/05/20 10:46 IMPRESSION: No acute cardiopulmonary process. Chest/Abdomen CTA 07/05/20 12:41 IMPRESSION: 1. Bulky supraclavicular, mediastinal, hilar and upper mesenteric adenopathy concerning for lymphoma. 2. Splenomegaly. 3. Mild bronchial wall thickening without bronchiectasis, mucous plugging or consolidation. 4. No pulmonary emboli. Abdomen/Pelvis CT 07/06/20 13:15 IMPRESSION: 1. Splenomegaly. There are multiple small periaortic lymph nodes. 2. Cannot exclude adenopathy in the posterior mediastinum on the 1st few images. Plan Goals: Dr. Melody Camargo 07-21-20@4:15---DJL Time Spent: Greater than 30 Minutes Stroke Is this a Stroke Patient?: No Acute Heart Failure Is this a Heart Failure Patient?: No
[2020-07-10 12:29] LABS: FREE T3 2.34 pg/mL (2.77-5.27); FREE T4 (FREE THYROXINE) 1.41 ng/dL (0.78-2.19)
[2020-07-10 12:42] LABS: THYROID STIMULATING HORMONE 2.72 uIU/mL (0.47-4.68)
[2020-07-10 12:59] VITALS: BP 121/64
[2020-07-10 15:13] LABS: EPSTEIN BARR VCA IGM AB <36.0 U/mL (0.0-35.9)
[2020-07-10 16:06] LABS: TOXOPLASMA GONDII IGM AB <3.0 AU/mL (0.0-7.9)
[2020-07-10 17:37] LABS: BLOOD PARASITE THICK SMEAR NO ORGANISMS SEEN
[2020-07-11 11:04] LABS: CMV DNA PCR QUANT Negative (Negative)
[2020-07-12 10:33] LABS: BLOOD PARASITE SCREEN RESULT NO ORGANISMS SEEN
[2020-07-12 14:52] LABS: LYME DISEASE IGM AB <0.80 index (0.00-0.79)
== END 2020-07-10 13:38 | disposition home or self-care (01) | DRG 854 ==
LOC: ER 09:34 → EH 16:08 → 5 19:15
PROVIDERS: ADMIT Hospitalist; ATTEND Internal Medicine
PROC: 07B10ZX Excision of Right Neck Lymphatic, Open Approach, Diagnostic (ICD-10-PCS; principal; 2020-07-08 07:30)
DX: R50.9 Fever, unspecified (principal); E87.1 Hypo-osmolality and hyponatremia; R65.10 Systemic inflammatory response syndrome (SIRS) of non-infectious origin without acute organ dysfunction; S22.42XA Multiple fractures of ribs, left side, initial encounter for closed fracture; R59.9 Enlarged lymph nodes, unspecified; R16.1 Splenomegaly, not elsewhere classified; J40 Bronchitis, not specified as acute or chronic; X58.XXXA Exposure to other specified factors, initial encounter; Z88.0 Allergy status to penicillin; E86.0 Dehydration; D72.819 Decreased white blood cell count, unspecified; D50.9 Iron deficiency anemia, unspecified; R79.1 Abnormal coagulation profile; Z20.828 Contact with and (suspected) exposure to other viral communicable diseases
CPT/HCPCS: 00320; 0202U; 36415; 71045; 71275; 74177; 80053; 80202; 81001; 82306; 82550; 82607; 82728; 82746; 83605; 83615; 83735; 84100; 84439; 84443; 84478; 84481; 84484; 85025; 85027; 85379; 85610; 86140; 86308; 86480; 86617; 86618; 86664; 86665; 86701; 86778; 87015; 87040; 87070; 87077; 87086; 87150; 87186; 87205; 87207; 87496; 87635; 87799; 87804; 87880; 88184; 88185; 88233; 88262; 88305; 93005; 93010; 96361; 96374; 96375; 99285; 0241U; C9803; J0131; J0690; J0692; J1100; J1170; J1650; J1885; J2185; J2250; J2405; J2704; J3010; J3370; J3490; J7030; J7060; J7120

== ENCOUNTER → 2020-08-13 | Outpatient (CLI) | payer MEDICAID ==
--- NOTE | 2020-08-13 12:36 | RADIOLOGY REPORT (SQ) ---
EXAM DESCRIPTION: NM MUGA REST IMAGES COMPLETED DATE/TIME: 08/13/2020 11:54 am REASON FOR STUDY: (Z)ENCOUNTER FOR OTHER SPECIFIED SPECIAL EXAMINATIONS Z01.89 ENCOUNTER FOR O THER SPECIFIED SPECIAL EXAMINATIONS Z08 ENCNTR FOR FOLLOW-UP EXAM AFTER TRTMT FOR MALIGNANT NEOP COMPARISON: None. RADIONUCLIDE AND DOSE: 20 mCi technetium 99m labeled red blood cells The route of agent administration: Intravenous TECHNIQUE: Following administration of the radionuclide, gated images of the heart are obtained in t hree projections. Left ventricular functional analysis performed. LIMITATIONS: None. FINDINGS: LEFT VENTRICULAR FUNCTION: EJECTION FRACTION: 75%. END-DIASTOLIC VOLUME: 81 mL. END-SYSTOLIC VOLUME: 30 mL. WALL MOTION: No focal wall motion abnormalities. OTHER: No other significant finding. IMPRESSION: NORMAL CARDIAC MUGA STUDY. NORMAL LEFT VENTRICULAR FUNCTION WITH VALUES ABOVE. TECHNICAL DOCUMENTATION: JOB ID: [id number] 2010 [employer]- All Rights Reserved Reading location - IP/workstation name: [email or web address]
== END ==
LOC: RAD 10:25
PROVIDERS: ATTEND Internal Medicine Hematology & Oncology
DX: Z01.89 Encounter for other specified special examinations (principal); Z08 Encounter for follow-up examination after completed treatment for malignant neoplasm
CPT/HCPCS: 78472; A9560; Q9969

== ENCOUNTER → 2020-08-17 | Outpatient (CLI) | payer MEDICAID ==
--- NOTE | 2020-08-18 14:49 | RADIOLOGY REPORT (SQ) ---
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 TECHNIQUE: Blood glucose level was verified. Above dose of FDG was injected intravenously. 2-D seg mented attenuation correction images were obtained from the base of the skull to the midthighs. Nonc ontrast CT images were obtained for attenuation correction and fusion with emission images. CT image s were performed without oral or intravenous contrast and are not sensitive for parenchymal lesions. A series of overlapping emission PET images were obtained. Images reviewed and manipulated at [facility] work station by the radiologist. Images stored on PACS. LIMITATIONS: None. FINDINGS: HEAD AND NECK: Persistent bulky bilateral supraclavicular adenopathy with increased FDG up take (max SUV 12.4). No other areas of focal uptake within the head neck. CHEST: Again seen is the extensive hypermetabolic adenopathy involving the paratracheal, prevascular, AP window, subcarinal, bilateral hilar and right posterior mediastinal regions (max SUV 17.5). For reference largest discrete node prevascular region measures 2.7 cm , stable (series 3, image 74). Sm all hypermetabolic node within the right cardiophrenic recess measuring 12 mm in short access (series 3, image 111) (max SUV 5.0). Small pericardial effusion. ABDOMEN AND PELVIS: Background non focal hepatic activity max SUV 2.2. Splenomegaly, stable. There is diffuse mild uptake throughout the spleen (max SUV 3.2) which is above background hepatic activity . Additional hypermetabolic adenopathy along the pancreatic tail (max SUV 12.8) and luzmaria hepatis (m ax SUV 16.6). Multiple additional retroperitoneal nodes with mildly increased uptake. For reference there is a left para-aortic node measuring 13 mm in short axis (series 3, image 163) ((max SUV 4.9). This previously measured approximately 9 mm in short axis. Left internal iliac chain node with katelin suring 12 mm in short axis (series 3, image 199) (max SUV 6.0). Expected physiologic activity within the gastrointestinal genitourinary system. PROXIMAL LOWER EXTREMITIES: No areas of abnormal metabolic activity in the soft tissues of the lower extremities. BONES: No abnormal metabolic activity in the visualized skeleton. ADDITIONAL CT FINDINGS: As above. OTHER: No other significant findings. IMPRESSION: 1. Multifocal hypermetabolic adenopathy including the supraclavicular, mediastinal, hil ar, retrocrural, retroperitoneal and pelvic iliac chain nodes as detailed above (max SUV 17.5) and co mpatible with given history of lymphoma. 2. Splenomegaly with mild diffuse uptake (max SUV 3.2) which is above background hepatic activity. TECHNICAL DOCUMENTATION: JOB ID: [id number] 2010 [employer]- All Rights Reserved Reading location - IP/workstation name: [email or web address]
== END ==
LOC: RAD 10:07
PROVIDERS: ATTEND Internal Medicine Hematology & Oncology
DX: C81.90 Hodgkin lymphoma, unspecified, unspecified site (principal)
CPT/HCPCS: 78815; A9552